=== PATIENT | female | born 1945 | race Caucasian/White ===

== ENCOUNTER 2020-04-22 14:25 | Inpatient (IN) | payer BC ==
[~2020-04-22] VITALS: Ht 172.7 cm; Wt 123.8 kg
--- NOTE | ~2020-04-22 | EMS ---
[address] [address] EMS Patient Care Report Name: ALEXIS ARANDA Room #: 170-1 ADM IN M.R.#: [id number] Admission: 04/22/20 Attend Phys: Alexx Delgado MD Discharge: Date of : 47 Report #: [id number] THIS REPORT FOR: //name// Report Transmitted: 04/22/2020 17:22 EMS Care Summary [facility] MED-ACT Incident [id number] @ 04/22/2020 13:39 Incident Location [address] [place] [address] Patient ALEXIS ARANDA Female, 74 Years 1945 Patient Address [address] [place] [address] Patient History Syncope, Patient Allergies Codeine,Latex allergy, Patient Medications Tramadol, Tizanidine, Gabapentin, Chief Complaint Hypotension Disposition Transported No Lights/[place] Dispatch Reason Unconscious/Fainting Transported To [facility] Narrative S-42 and M 1142 were dispatched to [facility] for a C-1 Unconscious. M 1142 responded emergently with lights and sirens. M 1142 found the patient sitting upright in her power chair in the restaurant. Pt was alert and oriented x4. Pt was c/o weakness, and dizziness. Pt was found to have a weak thready radial [address] [address] EMS Patient Care Report Name: ALEXIS ARANDA Room #: 170 ADM IN ..#: [id number] Admission: 04/22/20 Attend Phys: Alexx Delgado MD Discharge: Date of : 47 Report #: [id number] pulse. Pt was moved to the cot where she stated she felt better laying down. Pt stated she began to feel weak about 15-20 minutes ago. Pt stated she had been at the Doctor early in the day and they had prescribed that the pt. needed continuous home oxygen. Pt stated her O2 sat at the Doctor's office was 85%. Pt's room O2 sat was 83%. Pt's O2 saturation improved to 99% with Oxygen at 4 lpm via NC. IV initiated in the R. forearm. Pt stated that she had no pain or trouble breathing. Pt stated she felt that her speech felt normal to her. Secure transport who was eating with the pt. stated that she had taken pain killers early in the day and then had wine with her lunch. Staff stated that the patient's the pt's speech seemed normal to them. Pt complaints improved throughout transport. Pt transported to [facility]. Pt rested comfortably throughout transport. [facility] to [facility]. Pt to ER. RM#1. Pt report and care to RN. Initial Vitals @13:49P: 85,R: 18,BP: 100/71,Pain: 0/10,GCS: 15,Glucose: 200,SpO2: 83,Revised Trauma: 12,NM Suspected: false @14:01P: 82,R: 18,BP: 90/67,Pain: 0/10,GCS: 15,SpO2: 97,Revised Trauma: 12,NM Suspected: false @14:03P: 81,R: 18,Pain: 0/10,GCS: 15,SpO2: 99,NM Suspected: false @14:16P: 88,R: 18,BP: 95/56,Pain: 0/10,GCS: 15,SpO2: 99,Revised Trauma: 12, Assessments @13:50MENTAL:Person Oriented,Time Oriented,Event Oriented,Place Oriented,SKIN:HEENT:Head/Face: No Abnormalities,Neck/Airway: No Abnormalities,LUNG SOUNDS:General: No Abnormalities,ABDOMEN:General: No Abnormalities,PELVIS//GI:EXTREMITIES:Capillary Refill: Right Upper: < 2 Sec,Left Arm: No Abnormalities,Right Arm: No Abnormalities,Left Leg: No Abnormalities,Right Leg: No Abnormalities,PULSE:Radial: 1+ Thready,NEURO:No Abnormalities, Impression Generalized Weakness Procedures @14:0312-Lead ECGResponse: UnchangedSucceeded@14:34Oxygen FlowRate: 4 Device: Nasal Cannula (NC) Response: ImprovedSucceeded@14:34Saline Lock cc (18 ga) Site: Antecubital-LeftResponse: UnchangedFailed@14:35Normal Saline (.9% NaCl) 50cc (20 ga) Site: Forearm-RightResponse: ImprovedSucceeded Timeline 13:36,Call Received 13:36,Psap Call 13:39,Dispatched 13:39,En Route 13:43,On Scene [address] [address] EMS Patient Care Report Name: ALEXIS ARANDA Room #: 170-1 ADM IN [facility]#: [id number] Admission: 04/22/20 Attend Phys: Alexx Delgado MD Discharge: Date of : 47 Report #: [id number] 13:45,At Patient 13:49,BP: 100/71 M,PULSE: 85,RR: 18 R,SPO2: 83 Ox,ETCO2: ,B,PAIN: 0,GCS: 15, 14:01,BP: 90/67 M,PULSE: 82,RR: 18 R,SPO2: 97 Ox,ETCO2: ,BG: ,PAIN: 0,GCS: 15, 14:03,12-Lead ECG,Response: UnchangedSucceeded, 14:03,BP: / M,PULSE: 81,RR: 18 R,SPO2: 99 Ox,ETCO2: ,BG: ,PAIN: 0,GCS: 15, 14:07,Depart Scene 14:16,BP: 95/56 M,PULSE: 88,RR: 18 R,SPO2: 99 Ox,ETCO2: ,BG: ,PAIN: 0,GCS: 15, 14:26,At Destination 14:34,Oxygen FlowRate: 4 Device: Nasal Cannula (NC) Response: ImprovedSucceeded, 14:34,Saline Lock cc 18 ga Site: Antecubital-Left,Response: UnchangedFailed, 14:35,Normal Saline (.9% NaCl) 50cc 20 ga Site: Forearm-Right,Response: ImprovedSucceeded, 14:36,Call Closed Disclaimer v1.1 Copyright 2020 [employer] This EMS Care Summary contains data elements from the applicable legal record (which may be displayed differently). It is designed to provide pertinent information for the following purposes: continuity of care, clinical quality, and state data reporting. The complete legal record is available to ED staff and administrators of the receiving hospital in [employer]'s Patient Tracker. All data is provided "as is."
[~2020-04-22 14:25] MED LIST: ADULT LOW DOSE81 MG PO; ALLERGY10 MG; AMARYL4 MG PO; AMBIEN 5 MG TABL5 M1 PO; ARMOUR THYROID15 M1 PO; ASPIRIN325 PO; ATROVENT15 ML INH; AZITHROMYCIN 2250 MG PO; BENADRYL25 MG PO; BENZONATATE200 MG PO; CALCIUM 600 +1 EAC7 PO; CELEXA40 MG PO; CHONDROITIN SU1 EACH PO; CLARITIN10 MG PO; CLONAZEPAM 1 MG1 M1 PO; CLONAZEPAM PO; COD LIVER OIL473 ML; COLACE 100 MG100 MG PO; COLACE100 MG PO; DESYREL150 MG PO; DETROL LA4 MG PO; DIABETIC TUSSI400 MG PO; DICLOFENAC POTA50 MG; DOXYCYCLINE 10100 M1 PO; DULCOLAX10 MG RC; ENOXAPARIN30 MG/0.1 SUBQ; FLEXERIL PO; FOLIC ACID0.4 MG PO; FOSAMAX 70 MG T70 MG PO; FUROSEMIDE 40 M40 M1 PO; GLUCOPHAGE1000 MG PO; GLUCOSAMINE SU500 MG PO; HYDROCODONE-AP1 EAC6; HYDROCODONE-APA1 TA1 PO; IRON325 M1 PO; KLONOPIN1 MG PO; KLOR-CON 10 ER10 MEQ PO; LASIX 20 MG TAB20 MG PO; LASIX 40 MG TAB40 M2 PO; LEXAPRO20 MG PO; LIPITOR10 MG PO; LITHIUM CARBON150 MG PO; LITHIUM CARBON600 MG PO; MORPHINE SULFAT10 MG PO; MORPHINE SULFAT15 M3 PO; MUCINEX DM TABL1 TA1 PO; MULTIVITAMINS1 EAC7 PO; MYRBETRIQ25 MG; NABUMETONE 750750 M1 PO; NABUMETONE PO; NEURONTIN 300M300 M2 PO; NEXIUM20 M1 PO; NICOTROL INHAL1 CAR1 IH; OLANZAPINE5 MG PO; OMEPRAZOLE 20 M20 MG PO; ONDANSETRON HCL4 M2 PO; OXYCODONE-APAP1 EAC6 PO; PREDNISONE 10 M10 M1 PO; PREDNISONE 20 M20 MG PO; PRILOSEC20 MG PO; PROTONIX40 M2 PO; PROVENTIL; PROVENTIL HFA6.7 G1 INH; PULMICORT200 MCG IH; PURELAX17 GM PO; ROBAFEN AC SYR120 ML PO; SENOKOT-S1 TA1 PO; SEREVENT DISKU50 MCG IH; SEROQUEL 100 M100 MG PO; SIMVASTATIN80 MG PO; SLOW-MAG64 MG PO; TESSALON PERLE100 MG PO; TRAMADOL 50 MG50 MG; TRAZODONE 150150 MG PO; TYLENOL325 MG PO; VENTOLIN HFA 1818 GM; VENTOLIN HFA 1818 GM INH; VITAMIN A8000 UNI1; VITAMIN B-12500 MCG PO; VITAMIN C100 M1 PO; VITAMIN D1000 UNI1 PO; VITAMIN D31000 UNI2 PO; VITAMIN E400 UNIT PO; XANAX 0.5 MG0.5 MG PO; XANAX XR1 MG PO; XARELTO10 MG PO; XOPENEX0.63 MG/3 IH; ZANAFLEX4 M1 PO; ZANAFLEX4 MG PO; ZPAK PO; [UNRECOGNIZED DRUG - CODE]; [UNRECOGNIZED DRUG - OTHER]
[2020-04-22 14:40] VITALS: BP 104/47
[2020-04-22 14:51] LABS: ABSOLUTE NEUTROPHILS 5.8 thou/uL (1.4-8.2); BASOPHILS 0.5 % (0.0-2.0); EOSINOPHILS 3.5 % (0.0-3.0); HEMATOCRIT 37.4 % (37.0-47.0); HEMOGLOBIN 12.3 gm/dL (12.0-15.0); LYMPHOCYTES 12.6 % (24.0-44.0); MCH 27.7 pg (26.0-34.0); MCHC 32.8 g/dL (28.0-37.0); MCV 84.5 fL (80.0-100.0); MONOCYTES 9.3 % (1.0-8.0); PLATELET COUNT 174 thou/uL (150-400); POLYS 74.1 % (36.0-66.0); RBC 4.42 mil/uL (4.20-5.00); RDW 15.6 % (10.5-14.5); WBC 7.8 thou/uL (4.0-11.0)
[2020-04-22 15:04] LABS: PROTIME 10.1 Seconds (9.3-11.4)
[2020-04-22 15:10] LABS: ANION GAP < 0 mmol/L (7-16); BUN 25 mg/dL (7-18); CALCIUM 8.2 mg/dL (8.5-10.1); CHLORIDE 98 mmol/L (98-107); CO2 39 mmol/L (21-32); CREATININE 0.8 mg/dL (0.6-1.0); GLUCOSE 147 mg/dL (74-106); POTASSIUM 5.3 mmol/L (3.5-5.1); SODIUM 135 mmol/L (136-145)
[2020-04-22 15:20] LABS: ALBUMIN 2.8 g/dL (3.4-5.0); MAGNESIUM 1.8 mg/dL (1.8-2.4); SGOT 16 U/L (15-37); SGPT 17 U/L (30-65); TOTAL BILIRUBIN 0.2 mg/dL (0.2-1.0); TOTAL PROTEIN 6.1 g/dL (6.4-8.2); TROPONIN-I <0.06 ng/mL (<0.06)
[2020-04-22 16:14] LABS: URINE BILIRUBIN NEGATIVE (Negative); URINE BLOOD NEGATIVE (Negative); URINE CLARITY CLEAR; URINE COLOR YELLOW; URINE GLUCOSE-RANDOM* NEGATIVE (Negative); URINE KETONES NEGATIVE (Negative); URINE LEUKOCYTES-REFLEX NEGATIVE (Negative); URINE PROTEIN (DIPSTICK) NEGATIVE (Negative); URINE UROBILINOGEN 0.2 E.U./dl (0.2-1.0)
[2020-04-22 16:17] LABS: URINE NITRITE-REFLEX POSITIVE (Negative)
[2020-04-22 16:32] LABS: SQUAMOUS 0-3 Few /LPF (0-3); URINE WBC-REFLEX 0-5 Rare /HPF (0-5)
[2020-04-22 16:33] LABS: BACTERIA-REFLEX >30 Many /HPF (None Seen); CASTS None Seen /LPF (None Seen); CRYSTALS None Seen /LPF (None Seen); URINE RBC None Seen /HPF (0-2)
[2020-04-22 18:34] LABS: FOLIC ACID 19.6 ng/mL (8.6-58.9)
[2020-04-22 18:39] VITALS: BP 119/59
[2020-04-22 19:15] VITALS: BP 153/77
--- NOTE | 2020-04-22 19:36 | NUR ---
PT ARRIVED TO UNIT APPROX 1900. ALERT AND ORIENTED. VSS. DENIES CONCERNS OR ANY NEEDS AT THIS TIME. NO DISTRESS NOTED.
[2020-04-23] VITALS: BP 142/64
[2020-04-23 04:37] VITALS: BP 149/69
[2020-04-23 06:12] LABS: CREATININE 0.6 mg/dL (0.6-1.0); MAGNESIUM 1.9 mg/dL (1.8-2.4)
--- NOTE | 2020-04-23 06:45 | NUR ---
PATIENTS CARE WAS ASSUMED AFTER A TRANSFER FROM THE ED. PATIENT WAS ASSESSED MEDS WERE PASSED. PATIENT DOES HAVE MANY PERSONALITIES. 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 ADMISSION WAS DONE. PATIENT HAD A BM 04/22. PATIENT ALSO REPORTED NEURO SURGERY BY DR. RODRIGUEZ ON T2 TO T4 APPROX FOUR WEEKS AGO. PATIENT IS LOOKING FOR A ARROYO. HOURLY ROUNDS WERE DONE. THE BED IS IN A LOW AND LOCKED POSITION.
[2020-04-23 07:07] LABS: HEMATOCRIT 41.3 % (37.0-47.0); HEMOGLOBIN 13.1 gm/dL (12.0-15.0); MCH 27.5 pg (26.0-34.0); MCHC 31.8 g/dL (28.0-37.0); MCV 86.5 fL (80.0-100.0); PLATELET COUNT 134 thou/uL (150-400); RBC 4.77 mil/uL (4.20-5.00); RDW 15.6 % (10.5-14.5); WBC 5.7 thou/uL (4.0-11.0)
--- NOTE | 2020-04-23 07:27 | EKG ---
[facility] [place] [address] [place] [address] ELECTROCARDIOGRAM REPORT Name: ALEXIS ARANDA Room #: 212- ADM IN M.R.#: [id number] Admission: 04/22/20 Attend Phys: Alexx Delgado MD Discharge: Date of : 47 Report #: [id number] THIS REPORT FOR: cc: Jadiel Morrell MD, Jonathan MD Lundgren,Sean Richard MD [facility] THIS REPORT FOR: //name// [facility] ED Test Date: 2020-04-22 Test Time: 14:41:00 Pat Name: ALEXIS ARANDA Department: Room: [facility] Gender: F Restaurant Expeditor: : 1945 Requested By: Soni Baca Order Number: [id number] MD: Sean Candelaria Measurements Intervals [place] Rate: 86 P: 74 NC: 168 QRS: 55 QRSD: 93 T: 70 QT: 365 QTc: 437 Interpretive Statements Sinus rhythm Normal tracing Compared to ECG 08/21/2017 22:41:08 No significant changes Electronically Signed On 04-23-2020 7:27:04 CDT by Sean Candelaria [email or web address] <ELECTRONICALLY SIGNED> By: Sean Candelaria MD, FACC 04/23/20 0727 1441 1441 Sean Candelaria MD, [facility] /EPI
[2020-04-23 08:00] VITALS: BP 166/71
[2020-04-23 11:29] VITALS: BP 140/59
[2020-04-23 11:35] LABS: ANISOCYTOSIS 1+
--- NOTE | 2020-04-23 12:11 | NUR ---
PT REFUSED TUBIGRIP SOCKS ORDERED BY WOUND CARE. PT EDUCATED.
[2020-04-23 15:21] VITALS: BP 146/61
[2020-04-23] MEDS ORDERED: PROAIR HFA8.5 GM INH (15:40)
[2020-04-23] MEDS ORDERED: AVAPRO300 MG PO (15:40)
[2020-04-23] MEDS ORDERED: SINGULAIR 10 MG10 M1 PO (15:41)
[2020-04-23] MEDS ORDERED: FLOMAX0.4 MG PO (15:42)
[2020-04-23] MEDS ORDERED: DEPAKOTE ER500 M1 PO (15:42)
--- NOTE | 2020-04-23 16:44 | NUR ---
PT CARE ASSUMED APPROX 0700. ASSESSMENT CHARTED. PT DENIES SOA AND N/V. VSS. PT REPORTS CHRONIC BACK PAIN. PAIN MANAGEMENT POC IN PLACE. PT REFUSING CARES AND VS INTERMITTENTLY. PT HOSTILE EARLIER THIS SHIFT BECAUSE SHE WAS NOT ALLOWED TO EAT HAND FIELD FOREMAN. PT REPORTED THAT SHE "EATS HAND SANTIZER WITH EVERYTHING." ARROYO PLACED THIS SHIFT WITHOUT ISSUE. PT WANTING TO GO AMA AT THIS TIME. NURSE HAS EDUCATED PT. WILL CONTINUE TO MAKE ATTEMPTS AT DE-ESCALATION. NO DISTRESS NOTED.
--- NOTE | 2020-04-23 18:35 | HC ---
[facility] [place] [address] [place] [address] CONSULTATION Name: ALEXIS ARANDA Room #: 212-P ADM IN M.R.#: [id number] Admission: 04/22/20 Attend Phys: Alexx Delgado MD Discharge: Date of : 47 Report #: [id number] THIS REPORT FOR: cc: Jadiel Morrell MD,Jadiel Velez,Chang Felton MD ~ CC: Alexx Morrell DATE OF SERVICE: 04/23/2020 CHIEF COMPLAINT: Lower extremity edema and cellulitis. HISTORY OF PRESENT ILLNESS: This is a 74-year-old female patient with history of diabetes and hypertension, was admitted to the hospital for weakness and diaphoresis. She is noted to have some swelling of her legs with some redness and I have been asked to see her with regard to wound care evaluation. The patient at the time of evaluation is arguing with the nurse. She is refusing to take her morning medications unless she is allowed to take them with hand warehouse man as and she wishes to consume with hand warehouse man and use that in place of water for swallowing her pills, stating that she places hand warehouse man on many of her food items at home as well as takes her medications with hand warehouse man. It is difficult to redirect her to discussing her legs at this point in time. PAST MEDICAL HISTORY: Significant for hypertension, COPD, irritable bowel syndrome, gastritis, type 2 diabetes mellitus, hypothyroidism, history of migraine, chronic pain, bipolar affective disorder, depression, fibroadenoma, uterine fibroids, nocturnal hypoventilation and hypoxemia and chronic pain. MEDICATIONS: Include aspirin, hydrocodone, Xarelto, Klonopin, tizanidine, [place] Thyroid, trazodone, Lasix, Neurontin, Myrbetriq, Relafen, Prilosec, Ventolin, vitamin D3, olanzapine, morphine, Detrol, Fosamax, prednisone, Zofran. SOCIAL HISTORY: Positive for 1 glass of wine per day. She is a previous smoker. FAMILY HISTORY: Unknown. REVIEW OF SYSTEMS: Really not obtainable at this time. She is very focused and insistent on being able to consume hand warehouse man with her morning medications and is arguing with the nurse and once again cannot be redirected for additional questioning. PHYSICAL EXAMINATION: VITAL SIGNS: At this time include temperature 36.3, pulse 80, respiratory rate [facility] [address] [place] [address] CONSULTATION Name: ALEXIS ARANDA Room #: 212-P [facility] IN M.R.#: [id number] Admission: 04/22/20 Attend Phys: Alexx Delgado MD Discharge: Date of : 47 Report #: [id number], blood pressure 166/71. GENERAL: This is a somewhat chronically ill-appearing female patient who is argumentative, but appears to be in no medical distress. HEENT: Head normocephalic. Nose and throat are clear. NECK: Supple. LUNGS: Diminished. HEART: Regular rhythm. ABDOMEN: Appears nontender. EXTREMITIES: Lower extremities demonstrate 2+ edema, mild to moderate erythema, greater on the right than on the left. No open ulcerations. NEUROLOGIC: The patient is alert. Her level of orientation is difficult to assess and she is not cooperative with questioning. LABORATORY STUDIES: Include white blood cell count 5.7, hemoglobin 13.1, hematocrit 41.3. Sodium 136, potassium 5.0, chloride 100, CO2 of 35, BUN 22, creatinine 0.6, glucose 101, calcium is 8.0, magnesium 1.9, albumin is 2.8. CLINICAL IMPRESSION: 1. Venous dermatitis, bilateral lower extremities. 2. Urinary tract infection. 3. History of recent cervical laminectomy. 4. Hypertension. 5. Diabetes mellitus. 6. Bipolar affective disorder. RECOMMENDATIONS: At this point in time, we will recommend AmLactin lotion to her legs bilaterally with Tubigrip stockings for compression. Recommend elevation as she will permit. Continuation of current medications. I think she will need to be monitored with regard to her desire to consume hand warehouse man while here in the hospital. We will discuss with the hospitalist regarding those issues. I appreciate being asked to see her in consultation. <ELECTRONICALLY SIGNED> By: Chang Velez MD 04/23/20 1835 [id number] [id number] Chang Velez MD /nt
--- NOTE | 2020-04-23 19:18 | NUR ---
PT CALLED MEDICAL TRANSPORTATION WITH ATTEMPT TO LEAVE AMA. WHEN PT FOUND OUT THAT LEAVING AMA WOULD MEAN THAT SHE COULDN'T GET A SCRIPT WRITTEN FOR HER ANTIBIOTICS SHE WAS AGREEABLE TO STAY. PAIN MEDS CHANGES PER PT REQUEST BUT NOW SHE IS REFUSING MEDS. PT EDUCATED AND REPORT PASSED TO ONCOMING NURSE.
[2020-04-23 19:30] VITALS: BP 159/57
[2020-04-24 04:52] VITALS: BP 161/66
--- NOTE | 2020-04-24 04:58 | NUR ---
PT ALERT AND ORIENTED. CATHETER INTACT. C/O KNEE PAIN. PAIN MEDS PRN GIVEN. DENIES CHEST PAIN OR SOB. O2 SATS LOW THIS AM, IN 86, O2 TITRATED TO 4L , SATS 93%. PT TEARFUL AND WOULD LIKE TO BE TESTED FOR COVID. NO IMPULSIVE BEHAVIORS NOTED. PT ALSO STATES SHE WOULD LIKE TO GO HOME TO HER CATS. RN REASSURED PT SAFTY AND WILL BE DISCHARGED WHEN STABLE. NO FURTHER CONCERNS. WILL CONTINUE TO MONITOR.
[2020-04-24 08:00] VITALS: BP 154/64
[2020-04-24] MEDS ORDERED: KEFLEX500 M1 PO (11:58)
[2020-04-24 12:08] VITALS: BP 154/64
--- NOTE | 2020-04-24 12:16 | NUR ---
Case discussed with the care team and chart reveiwed. Pt being dc'd to home today with hh RN and PT orders. Pt is adament about dc home and has arranged her own w/c van ride home at 12:30 today. She is agreeable to HH referral and after much discussion it appears that she was on service with [facility] prior to admission and has some private duty care per [facility]. The pt is going home with a ivey. She reports her pcp is Dr. Jadiel Herrera. She notes two emergency contacts, Friend [facility] Campbell and [facility] Steen. She uses a scooter for mobility and has a ramp to enter her home and a stair lift to access the second floor. Her speech is manic and she changes topic constantly. She is anxious to go home today. [facility] spoke with the [facility] and they did have her on service prior to admission and can accept her for home RN and PT f/u. They are concerned about her living on her own and had a team mtg about her case yesterday. Will ask for o2 sats for possible o2 referral as well. The pt is agreeable if she qualifies but she does not want to wait or delay her dc for that. Dc community planner to fax her orders to [facility] for start of care tomorrow. The pt indicates that she has arranged for her private duty caregiver from [facility] to be there this afternoon. She denies any additional concerns. Will ask the [facility] to reassess her home safety and hotline if needed.
[2020-04-24 12:39] VITALS: BP 154/64
--- NOTE | 2020-04-24 15:00 | NUR ---
PT DISCHARGED TODAY TO HOME WITH [facility] FAXED DC ORDERS/SUMMARY SPOKE WITH ALISHA IN INTAKE SHE RECEIVED ORDERS AND WILL NOTIFY PT TIME OF VISITS.
--- NOTE | 2020-04-24 15:06 | NUR ---
PT DISCHARGING TODAY TO HOME WITH [facility] FAXED DC ORDERS/SUMMARY SPOKE WITH ALISHA IN INTAKE THEY RECEIVED ORDERS AND WILL NOTIFY PT TIME OF VISITS. FAXED REFERRAL TO [facility] FOR [facility] 02 SPOKE WITH ALBA SHE RECEIVED REFERRAL.
== END 2020-04-24 13:52 | disposition home health service (06) | DRG 689 ==
LOC: ER 14:25 → 2N 16:38 → EROBS 16:38 → 2N 19:00
PROVIDERS: Nurse Practitioner; Physician Assistant; ADMIT Hospitalist; ATTEND Hospitalist
DX: N39.0 Urinary tract infection, site not specified (principal); E43 Unspecified severe protein-calorie malnutrition; I10 Essential (primary) hypertension; Z96.611 Presence of right artificial shoulder joint; Z96.653 Presence of artificial knee joint, bilateral; E11.9 Type 2 diabetes mellitus without complications; E03.9 Hypothyroidism, unspecified; F31.9 Bipolar disorder, unspecified; G89.29 Other chronic pain; L30.8 Other specified dermatitis; E87.5 Hyperkalemia; J44.9 Chronic obstructive pulmonary disease, unspecified; M81.0 Age-related osteoporosis without current pathological fracture; G47.00 Insomnia, unspecified; K59.00 Constipation, unspecified; B96.20 Unspecified Escherichia coli [E. coli] as the cause of diseases classified elsewhere; Z90.13 Acquired absence of bilateral breasts and nipples; Z88.6 Allergy status to analgesic agent; Z88.8 Allergy status to other drugs, medicaments and biological substances; Z87.891 Personal history of nicotine dependence; Z79.82 Long term (current) use of aspirin; Z79.899 Other long term (current) drug therapy
CPT/HCPCS: 10797

== ENCOUNTER 2020-05-08 13:05 | Emergency (ER) | payer BC ==
[~2020-05-08] VITALS: Ht 172.7 cm; Wt 125.2 kg
[~2020-05-08 13:05] MED LIST changes: +AVAPRO300 MG PO; +DEPAKOTE ER500 M1 PO; +FLOMAX0.4 MG PO; +KEFLEX500 M1 PO; +PROAIR HFA8.5 GM INH; +SINGULAIR 10 MG10 M1 PO
[2020-05-08 14:04] LABS: URINE BILIRUBIN NEGATIVE (Negative); URINE BLOOD 3+ (Negative); URINE CLARITY SL CLOUDY; URINE COLOR YELLOW; URINE GLUCOSE-RANDOM* NEGATIVE (Negative); URINE KETONES TRACE (Negative); URINE PROTEIN (DIPSTICK) TRACE (Negative); URINE UROBILINOGEN 0.2 E.U./dl (0.2-1.0)
[2020-05-08 14:05] LABS: URINE LEUKOCYTES-REFLEX 2+ (Negative); URINE NITRITE-REFLEX POSITIVE (Negative)
[2020-05-08 14:15] LABS: URINE RBC 3-10 Few /HPF (0-2)
[2020-05-08 14:16] LABS: CASTS None Seen /LPF (None Seen); CRYSTALS None Seen /LPF (None Seen); SQUAMOUS 0-3 Few /LPF (0-3)
[2020-05-08] MEDS ORDERED: KEFLEX500 M1 PO (14:42)
[2020-05-08 16:08] VITALS: BP 124/59
== END 2020-05-08 16:08 | disposition home or self-care (01) ==
LOC: ER 13:05
PROVIDERS: Emergency Medicine
DX: N39.0 Urinary tract infection, site not specified (principal); R41.82 Altered mental status, unspecified; I10 Essential (primary) hypertension; J44.9 Chronic obstructive pulmonary disease, unspecified; E11.9 Type 2 diabetes mellitus without complications; E03.9 Hypothyroidism, unspecified; G43.909 Migraine, unspecified, not intractable, without status migrainosus; F31.9 Bipolar disorder, unspecified; Z90.89 Acquired absence of other organs; Z96.653 Presence of artificial knee joint, bilateral; Z96.611 Presence of right artificial shoulder joint; Z79.2 Long term (current) use of antibiotics; Z79.899 Other long term (current) drug therapy; Z79.82 Long term (current) use of aspirin; Z91.048 Other nonmedicinal substance allergy status; Z88.8 Allergy status to other drugs, medicaments and biological substances; Z88.5 Allergy status to narcotic agent; Z87.891 Personal history of nicotine dependence

== ENCOUNTER 2020-06-29 14:46 | Inpatient (IN) | payer MEDICARE ==
[~2020-06-29] VITALS: Ht 172.7 cm; Wt 128.9 kg
[2020-06-29 14:54] VITALS: BP 130/82
[2020-06-29] MEDS ORDERED: NABUMETONE 500500 M1 PO (15:09)
[2020-06-29] MEDS ORDERED: TIZANIDINE HCL2 M1 PO (15:10)
[2020-06-29] MEDS ORDERED: LASIX 40 MG TAB40 MG PO (15:10)
[2020-06-29] MEDS ORDERED: TRAMADOL HCL50 MG PO (15:10)
[2020-06-29] MEDS ORDERED: PROTONIX40 M2 PO (15:10)
[2020-06-29] MEDS ORDERED: DIOVAN320 MG PO (15:11)
[2020-06-29] MEDS ORDERED: TRAMADOL 50 MG50 MG PO (15:11)
[2020-06-29 15:35] LABS: HEMATOCRIT 38.1 % (37.0-47.0); HEMOGLOBIN 12.4 gm/dL (12.0-15.0); MCH 28.9 pg (26.0-34.0); MCHC 32.6 g/dL (28.0-37.0); MCV 88.7 fL (80.0-100.0); PLATELET COUNT 173 thou/uL (150-400); RBC 4.29 mil/uL (4.20-5.00); RDW 19.3 % (10.5-14.5); WBC 6.1 thou/uL (4.0-11.0)
[2020-06-29 15:46] LABS: ALBUMIN 3.2 g/dL (3.4-5.0); BUN 36 mg/dL (7-18); CALCIUM 8.6 mg/dL (8.5-10.1); CHLORIDE 97 mmol/L (98-107); CREATININE 0.9 mg/dL (0.6-1.0); GLUCOSE 102 mg/dL (74-106); POTASSIUM 4.9 mmol/L (3.5-5.1); SGOT 11 U/L (15-37); SGPT 16 U/L (30-65); SODIUM 140 mmol/L (136-145); TOTAL BILIRUBIN 0.3 mg/dL (0.2-1.0); TOTAL PROTEIN 7.1 g/dL (6.4-8.2)
[2020-06-29 15:53] LABS: CO2 > 45 mmol/L (21-32)
[2020-06-29 16:12] LABS: ANISOCYTOSIS 1+; LARGE PLATELETS RARE; POLYCHROMASIA OCCASIONAL
[2020-06-29 16:39] LABS: HCO3 49.6 mmol/L (22.0-26.0); PCO2 94.5 mmHg (35.0-45.0); PO2 100.3 mmHg (80.0-100.0); pH 7.338 (7.360-7.450); sO2 96.8 % (92.0-98.0)
--- NOTE | 2020-06-29 19:30 | NUR ---
PT REFUSING TO LEAVE BIPAP ON. TAKES IT OFF RIGHT WHEN THIS RN LEAVES ROOM. PROVIDER NOTIFIED THAT PATIENT WANTS TO TALK ABOUT REASONING FOR USE.
[2020-06-29 20:09] VITALS: BP 133/75
--- NOTE | 2020-06-29 20:10 | NUR ---
PROVIDER AT BEDSIDE, TALKING WITH PT REGARDING USE OF BIPAP AND STAYING TONIGHT, PT IS AGREEABLE. PROVIDER EXPLAINED TWICE WHY WE WOULD LIKE HER TO STAY, PT STATES SHE WOULD LIKE TO BE EVALUTED FOR ESOPHAGEAL CANCER- HAS BURNING IN THROAT
[2020-06-29 22:24] VITALS: BP 90/66
[2020-06-29 23:17] VITALS: BP 102/40
--- NOTE | 2020-06-30 01:01 | NUR ---
Admission history and assessments completed. Care plan initiated. High fall risks, fall precautions in place.
[2020-06-30 04:10] VITALS: BP 133/54
--- NOTE | 2020-06-30 04:10 | NUR ---
Patient making progrerss towards outcome goals. Oxygen back at baseline 2L/NC. COVID antibody negative. Nasal swab results pending. Rhythm stable. High fall risks. Fall precautions in place.
[2020-06-30 06:01] LABS: CALCIUM 8.9 mg/dL (8.5-10.1); CREATININE 0.8 mg/dL (0.6-1.0)
[2020-06-30 06:03] LABS: POTASSIUM 5.9 mmol/L (3.5-5.1)
[2020-06-30 07:25] VITALS: BP 153/51
--- NOTE | 2020-06-30 09:47 | NUR ---
Nutrition: pt admitted with Knee pain, COVID rule out. Received consult due to Hx DM/overweight. BMI 43, extreme class 3 obesity. PMH: COPD, HTN, DM, IBS, bipolar, depression, TKA/knee revisions. No recent A1C, last available 5.1 in 2011. BG 136-203. K-5.9 critically high. Meds include lasix, SSI. No available intake records yet and RD did not visit due to enhanced precautions. Would benefit from adding heart healthy, low K+ and decrease calorie level to 1500 christiano carb controlled if pt eating > 75% of meals. Place as low risk for now.
[2020-06-30 11:53] LABS: HEMATOCRIT 35.8 % (37.0-47.0); HEMOGLOBIN 11.7 gm/dL (12.0-15.0); MCH 29.1 pg (26.0-34.0); MCHC 32.7 g/dL (28.0-37.0); MCV 89.1 fL (80.0-100.0); RBC 4.02 mil/uL (4.20-5.00); RDW 19.7 % (10.5-14.5); WBC 4.9 thou/uL (4.0-11.0)
[2020-06-30] MEDS ORDERED: BISACODYL10 MG RECTAL (13:05)
[2020-06-30] MEDS ORDERED: OSTERA TABLET1 EAC1 PO (13:06)
[2020-06-30] MEDS ORDERED: MIRALAX119 GM PO (13:07)
[2020-06-30] MEDS ORDERED: DESYREL150 MG PO (13:08)
[2020-06-30] MEDS ORDERED: OCUVITE EYE +1 EACH PO (13:09)
[2020-06-30] MEDS ORDERED: WOMEN'S LAXATIVE5 M1 PO (13:10)
[2020-06-30] MEDS ORDERED: STIOLTO RESPIMAT4 GM INH (13:12)
[2020-06-30] MEDS ORDERED: MELATONIN5 MG PO (13:22)
[2020-06-30] MEDS ORDERED: CEPACOL SORE T1 EAC7 PO (13:23)
[2020-06-30] MEDS ORDERED: MAPAP500 MG PO (13:24)
[2020-06-30] MEDS ORDERED: MYLANTA MAXIMU355 ML PO (13:28)
[2020-06-30] MEDS ORDERED: NYSTATIN1 EAC3 MISCELL (13:30)
--- NOTE | 2020-06-30 14:29 | NUR ---
INITIAL ASSESSMENT: Received consult for discharge planning. FRAN reviewed chart and spoke with nursing and attending physician. Pt was admitted from [facility] due to hypercapnia. Pt placed in Enhanced Isolation to r/o COVID-19. Pt is afebrile and on 4L of O2. Pt is on IV abx and IV steroids. FRAN spoke with Aurelio in admissions at [facility], who states that pt is in their superintendent marine oil terminal care unit and is paying privately for therapy services, as pt's insurance does not have a contract with [facility] for skilled services. Pt was aware of the charges and was agreeable with paying privately for therapy. Per Aurelio, pt's friend/DPOA, Kizzy Nicolas, has been assisting pt with her financial/healthcare decisions. Pt is and does not have children or family in the [place] area. Pt was not accepted into the AL facility at [facility] due to the level of care that pt requires. Pt would consider moving into another [facility] community if she is able to go to AL with and private duty services. SW spoke with pt via phone. Introduced role of FRAN. Pt appears to be alert/orientated. Pt states she would like to change her insurance in order to get better insurance coverage. SW explained that open enrollment starts , or her insurance can be contacted to see if pt would be able to change polices or return back to traditional Medicare. Pt was unsure how she got "signed up" for her current plan. Pt would like to have therapy services to regain her strength. Pt was having trouble understanding that therapy would be covered in an in-network facility. Pt was upset that she was having to pay privately for therapy. FRAN explained that if she was in an in-network SNF, therapy would be covered as long as insurance provides authorization. Pt gave consent for SW to contact her friend/DPOA, Kizzy Cavanaugh. FRAN spoke with Kizzy Cavanaugh at length regarding pt's current condition and discharge plan. Kizzy Cavanaugh requests assistance with finding pt a new facility (with both SNF and AL). Kizzy Cavanaugh states she has contacted [facility] and [facility] (both do not have SNFs) and [facility] in [place] (which does not have AL). FRAN reviewed in-network list with Kizzy Cavanaugh, who will review additional options. Awaiting therapy evals. Pt's COVID test is pending. Pt may need psych consult to determine if pt needs DPOA to be activated. Pt has been to [facility] in 2012 for inpt psych treatment. Kizzy Cavanaugh states that pt has not been making appropriate decisions for her self (medical/financial) over the past several years and would sometimes discharge to a hotel from a hospital, if unable to discharge back home. FRAN discussed with nursing and attending physician. Merly Sims to fax over DPOA ppwk to place on pt's chart. FRAN is following to assist as needed with discharge planning .
[2020-06-30 16:29] VITALS: BP 138/46
--- NOTE | 2020-06-30 19:18 | NUR ---
PT HAS BEEN VERY NONCOMPLIANT TODAY...SHE HAS BEEN UPSET BY DIET AND KEEPS CALLING DIETARY AND EVEN SECURITY FOR COOKIES...SHE IS UNABLE TO REDIRECT REGARDING FOLLOWING DIETARY RESTRICTIONS...SHE IS CONSTANTLY ON PHONE OR COMPUTER AND DOES NOT WANT TO COMPLY WITH HAVING VITALS TAKEN OR LABS DRAWN...SHE STATES THAT WE ARE BOTHERING HER AND SHE NEEDS TO WORK AND WE ARE IN HER WAY.
[2020-06-30 19:32] VITALS: BP 119/48
--- NOTE | 2020-06-30 22:04 | NUR ---
PT AWAKE RESTING IN BED WATCHING TV. PT HAD CLEAR SPEECH, ASKING NURSE QUESTIONS REGARDING TRUMP AND ELECTION. PT COMPLIANT WITH VS, ASSESSMENT AND MEDICATIONS. PT INCONTINENT AND ASSISTED WITH TURNING FOR ADL CARE. OXYGEN INTACT. PT REQUESTED SNACK AND PROVIDED. BED ALARM ON. PT REDIRECTED REGARDING SCRATCHING AT IV.
--- NOTE | 2020-06-30 22:06 | NUR ---
PT ATTEMPTED TO GET OOB, BED ALARM SOUNDED. PT REDIRECTED BACK TO BED. PTS SPEECH WAS INITIALLY MUMBLED AND HER EYES WERE CLOSED. PT RETURNED TO BED BUT DID REMOVE FEMALE EXT CATHETER. PT REQUESTED PRN FOR PAIN R LEG AND PROVIDED. PT STATED SHE COULD NOT REMEMBER THAT SHE HAD ALREADY HAD A SNACK OF PUDDING AND ICE CREAM. BED ALARM ON.
[2020-07-01 02:06] LABS: GLYCOHEMOGLOBIN (HGB A1C) 6.2 % (4.8-5.6)
[2020-07-01 05:56] VITALS: BP 144/62
[2020-07-01 07:37] VITALS: BP 140/51
--- NOTE | 2020-07-01 10:12 | NUR ---
ASSUMED CARE APPROX 0700. PT ALERT AND ORIENTED X2. IMPULSIVE. ASSESSMENT CHARTED AND VSS. PT AFEBRILE. ON 2LNC AND IS NONCOMPLIANT WITH WEARING O2. ENCOURAGED TO KEEP O2 ON, BUT PT BECAME AGITATED. REFUSED LASIX THIS AM D/T INCREASED VOIDING. EXPLAINED RATIONALE BEHIND TAKING LASIX TO PT. PT TO BE TRANSFERRED TO 4W THIS SHIFT. PT COVID NEGATIVE AND ISOLATION D/C'D. PT SLOWLY PROGRESSING TOWARDS PLAN OF CARE GOALS. WILL CONTINUE TO MONITOR.
[2020-07-01 13:01] LABS: URINE BILIRUBIN NEGATIVE (Negative); URINE BLOOD NEGATIVE (Negative); URINE CLARITY CLEAR; URINE COLOR YELLOW; URINE GLUCOSE-RANDOM* NEGATIVE (Negative); URINE KETONES NEGATIVE (Negative); URINE LEUKOCYTES-REFLEX TRACE (Negative); URINE NITRITE-REFLEX NEGATIVE (Negative); URINE PROTEIN (DIPSTICK) NEGATIVE (Negative); URINE UROBILINOGEN 0.2 E.U./dl (0.2-1.0)
--- NOTE | 2020-07-01 13:10 | NUR ---
SW reviewed chart and spoke with nursing and attending physician. Pt had negative COVID test. Enhanced Isolation precautions have been discontinued. Pt to transfer to 4 when a room is available. Discharge is anticipated for tomorrow. SW placed call to pt's room. No answer. FRAN spoke with pt's DPOA, Kizzy Cavanaugh, via phone to provide update and discuss discharge plan. Pt's DPOA states that pt and DPOA were interested in [facility], as they have SNF/LTC and AL facility. [facility] is in network with pt's insurance. SW faxed referral/COVID test results to [facility] and left voice message for Karen in admissions. FRAN spoke with Kizzy Cavanaugh to provide update. Kizzy Cavanaugh states that if [facility] is not able to accept pt, then pt will return to [facility] and paying privately for therapy services. Kristie will continue to work with pt on changing her insurance and alternate placement if needed. Requested OT eval if needed for insurance authorization. FRAN faxed clinical info/COVID test results to [facility] for review and notified liaison of anticipated discharge. [facility] is able to accept pt back tomorrow and will have their SW assist pt with changing insurance during the open enrollment period. FRAN is following to assist as needed with discharge planning.
[2020-07-01 13:24] LABS: CALCIUM 8.8 mg/dL (8.5-10.1); CREATININE 0.8 mg/dL (0.6-1.0); POTASSIUM 4.8 mmol/L (3.5-5.1)
--- NOTE | 2020-07-01 17:12 | NUR ---
Patient was transferred to this unit from at approximately 1240. Patient was admitted to for Hypercapnia. Vital signs stable, LSCTA (diminished), ABD is soft and non-tender, BS x's 4, there is mild excoriation in her mark-area (Barrier Cream is being applied); she denies pain but does take Tramadol BID. She is incontinent of bowel and bladder. Patient is supposed to use a Bipap at [facility]; she refuses to use this. She is on O2 @ 2 Liters per nc. She is to have Accu-checks AC and HS. Patient comes from [facility]. She was wheelchair bound but is now bedridden.Patient has been very manic and needy of staffs attention. Will continue to monitor.
[2020-07-01 19:43] VITALS: BP 155/56
--- NOTE | 2020-07-02 04:54 | NUR ---
Pt. has been up until about 0300 this am. Putting on her call light frequently and asking for snacks. She is also requesting something to help her sleep. New order for trazadone (see cpoe). Pt. currently resting quietly in bed. Bed alarm is on.
--- NOTE | 2020-07-02 05:46 | NUR ---
Pt. saturated in urine and did not want staff to change her. Pt. was changed and now she is thanking them. She has been very demanding with wanting this and this. I was scanning her meds and she demanded that I quit what I was doing to hand her lap tap top to her.
[2020-07-02 07:05] VITALS: BP 162/58
--- NOTE | 2020-07-02 09:26 | NUR ---
CM NOTIFIED THAT [facility] CAN ACCEPT PT FOR SKILLED REHAB SERVICES AND ARE ABLE TO SUBMIT FOR INSURANCE AUTH IF PT AND DPOA ARE AREEABLE. CM SPOKE WIHT DPOA AND SHE IS AGREEABLE IF PT IS. CM TO SPEAK WITH PT. ALEXIS CHRISTIANSEN INDICATED THAT SHE HAD CONTACTED DR. RODRIGUEZ'S NURSE AND THEY AREN'T ACCEPTING OF PT FOR TRANSFER FOR TREATMENT DPOA INDICATED THAT HAVE AN APPOINTMENT IN JULY. CM TO SPEAK WITH PT AND PROCEED INDICATED WITH DC PLANNING.
--- NOTE | 2020-07-02 13:41 | NUR ---
FAXED REFERRAL TO [facility] SPOKE WITH THOMAS IN ADM SHE RECEIVED REFERRAL AND COULD ACCEPT BUT INSURANCE DENIED REFERRAL. DP TO FOLLOW.
[2020-07-02 15:45] VITALS: BP 168/60
--- NOTE | 2020-07-02 19:37 | NUR ---
ASSUMED PT CARE THIS AM. PT VITAL SIGNS STABLE. PT INCONTINENT AND HAS A PUREWICK IN PLACE. PATIENT IS A&OX3. PAIN WAS RESPONSIVE TO MEDICATION GIVEN. PATIENT WAS PLEASENT AND COOPERATIVE THROUGHOUT THE DAY, THEN AROUND 1800 PATIENT BECAME UNCOOPERATIVE WITH NURSING STAFF. WHEN PT WAS BEING ASSESSED, SHE REFUSED THE ASSESSMENT NURSING HOME THROUGH, STATING THAT BEING ASSESSED DID NOT MATTER AND WAS NOT NEEDING TO BE DONE. PT WAS EDUCATED ON THE IMPORTANCE OF A THOROUGH ASSESSMENT, AND PATIENT CONTINUED TO REFUSE ASSESSMENT. SUPPLY CHAIN BUYER NURSE WAS MADE AWARE OF THE PATIENT'S REFUSAL TO THE DAY SHIFT ASSESSMENT.
[2020-07-02 20:15] VITALS: BP 132/56
--- NOTE | 2020-07-03 05:29 | NUR ---
Assumed pt care at 1900. A/OX4,pleasant and not yelling or resting care from staff. VSS.C/o generalized pain allover,medicated per EMAR with relief reported. External catheter in place and functional with yellow urine draining. NSR on telemetry. Fall precautions in place,calls approp for help.
[2020-07-03 06:31] LABS: ALBUMIN 2.8 g/dL (3.4-5.0); ANION GAP < 0 mmol/L (7-16); BUN 23 mg/dL (7-18); CALCIUM 8.4 mg/dL (8.5-10.1); CHLORIDE 97 mmol/L (98-107); CO2 44 mmol/L (21-32); CREATININE 0.5 mg/dL (0.6-1.0); GLUCOSE 109 mg/dL (74-106); POTASSIUM 4.4 mmol/L (3.5-5.1); SGOT 9 U/L (15-37); SGPT 15 U/L (30-65); SODIUM 140 mmol/L (136-145); TOTAL BILIRUBIN 0.2 mg/dL (0.2-1.0); TOTAL PROTEIN 6.5 g/dL (6.4-8.2)
[2020-07-03 09:45] VITALS: BP 133/44
[2020-07-03] MEDS ORDERED: CEFDINIR300 MG PO (10:38)
[2020-07-03] MEDS ORDERED: IPRAT-ALBUT 0.5-3 ML INH (10:38)
[2020-07-03] MEDS ORDERED: NORVASC5 M1 PO (10:49)
[2020-07-03] MEDS ORDERED: PREDNISONE 20 M20 MG PO (10:49)
[2020-07-03 11:32] VITALS: BP 131/54
--- NOTE | 2020-07-03 14:17 | NUR ---
[facility] IS ABLE TO ACCEPT PT FOR SKILLED STAY FAXED DC ORDERS/SUMMARY TO FACILITY SPOKE WITH THOMAS IN ADM SHE RECEIVED ORDERS.
--- NOTE | 2020-07-03 14:39 | NUR ---
PHYSICIAN CALLED THE INSURANCE COMPANY TO ATTEMPT THE FAST APPEAL THIS AM THEY HAD DENIED SKILLED YESTERDAY. IT WAS INDICATED THAT FAST APPEAL NEEDS TO BE SUBMITTED IN LETTER FORM AND MAILED TO SOMEWHERE IN [place]. CM CALLED [facility] AND THEY INDICATED THAT THEY COULD TAKE PT PRIVATE PAY ROOM AND BOARD AND PROVIDE THERAPY UNDER PART B. CM NOTIFIED DPOA OF THIS. SHE THANKED HOSPITAL FOR ATTEMPTING APPEAL BUT INDICATED PREFERENCE FOR PT TO DC TO [facility] PP WITH PART B THERAPY SERVICES. CM ARRANGED [facility] TO PICK PT UP AT [phone] TO TAKE HER TO [facility] THEN TO [facility] WITH 1L O2. PT AND DPOA ARE AWARE AND AGREEABLE. CHART COPY MADE. REPORT TO BE CALLED TO . NO OTHER CM INTERVENTION INDICATED. CASE CLOSED.
--- NOTE | 2020-07-03 15:22 | NUR ---
Assumed patient care at 0715. Vital signs stable. Wheezes auscultated in lung roach (Dr Barba ordered breathing treatment this am). ADB soft and non-tender, BS x's 4, skin is clean, warm, dry and intact. Patient complains of "level six to eight" generalized pain. She has been given Tramadol as ordered with partial pain relief. External Female Catheter has been used with good output, due to incontinence. Blood sugars have required Sliding Scale Insulin. Patient has been very needy of staffs attention. She has been non-compliant with snacks and sugary drinks. When this nurse would not get them for her, she asked PT, OT, other staff members and even has called the kitchen to get what she wanted. Patient was given a bed bath today. She was approved to go to [facility]. Patient Discharged to [facility] via [facility] at approximately 1525.
== END 2020-07-03 16:45 | DRG 189 ==
LOC: ER 14:46 → EROBS 19:49 → 3W 19:49 → 4W 07-01 13:12
PROVIDERS: Hospitalist; Nurse Practitioner Family; Physician Assistant; Psychiatry & Neurology Psychiatry; ADMIT Hospitalist; ATTEND Hospitalist
DX: J96.22 Acute and chronic respiratory failure with hypercapnia (principal); J44.1 Chronic obstructive pulmonary disease with (acute) exacerbation; Z68.41 Body mass index [BMI] 40.0-44.9, adult; J44.0 Chronic obstructive pulmonary disease with (acute) lower respiratory infection; M25.562 Pain in left knee; M25.561 Pain in right knee; I89.0 Lymphedema, not elsewhere classified; Z20.828 Contact with and (suspected) exposure to other viral communicable diseases; I10 Essential (primary) hypertension; E03.9 Hypothyroidism, unspecified; G43.909 Migraine, unspecified, not intractable, without status migrainosus; F31.9 Bipolar disorder, unspecified; Z96.611 Presence of right artificial shoulder joint; Z96.653 Presence of artificial knee joint, bilateral; G89.4 Chronic pain syndrome; E11.42 Type 2 diabetes mellitus with diabetic polyneuropathy; K29.70 Gastritis, unspecified, without bleeding; G47.33 Obstructive sleep apnea (adult) (pediatric); E66.01 Morbid (severe) obesity due to excess calories; E87.5 Hyperkalemia; H35.30 Unspecified macular degeneration; M81.0 Age-related osteoporosis without current pathological fracture; K21.9 Gastro-esophageal reflux disease without esophagitis; K59.00 Constipation, unspecified; Z99.81 Dependence on supplemental oxygen; Z98.42 Cataract extraction status, left eye; Z98.41 Cataract extraction status, right eye; Z90.13 Acquired absence of bilateral breasts and nipples; Z88.8 Allergy status to other drugs, medicaments and biological substances; Z88.6 Allergy status to analgesic agent; Z91.040 Latex allergy status; Z87.891 Personal history of nicotine dependence; Z79.82 Long term (current) use of aspirin; Z79.899 Other long term (current) drug therapy
CPT/HCPCS: 10045; 10879

== ENCOUNTER → 2020-07-23 | Outpatient (CLI) | payer MEDICARE ==
[~2020-07-23] MED LIST changes: +BISACODYL10 MG RECTAL; +CEFDINIR300 MG PO; +CEPACOL SORE T1 EAC7 PO; +DIOVAN320 MG PO; +IPRAT-ALBUT 0.5-3 ML INH; +LASIX 40 MG TAB40 MG PO; +MAPAP500 MG PO; +MELATONIN5 MG PO; +MIRALAX119 GM PO; +MYLANTA MAXIMU355 ML PO; +NABUMETONE 500500 M1 PO; +NORVASC5 M1 PO; +NYSTATIN1 EAC3 MISCELL; +OCUVITE EYE +1 EACH PO; +OSTERA TABLET1 EAC1 PO; +STIOLTO RESPIMAT4 GM INH; +TIZANIDINE HCL2 M1 PO; +TRAMADOL 50 MG50 MG PO; +TRAMADOL HCL50 MG PO; +WOMEN'S LAXATIVE5 M1 PO
== END ==
LOC: RAD 09:09
PROVIDERS: ATTEND Family Medicine
DX: R09.89 Other specified symptoms and signs involving the circulatory and respiratory systems (principal)

== ENCOUNTER 2020-08-05 12:04 | Emergency (ER) | payer MEDICARE ==
[~2020-08-05] VITALS: Ht 172.7 cm; Wt 117.9 kg
--- NOTE | ~2020-08-05 | EMS ---
[address] [address] EMS Patient Care Report Name: ALEXIS ARANDA Room #: PRE M.Purnima#: [id number] Admission: Attend Phys: Discharge: Date of : 47 Report #: [id number] THIS REPORT FOR: //name// Report Transmitted: 08/05/2020 11:42 EMS Care Summary [facility] MED-ACT Incident [id number] @ 08/05/2020 11:18 Incident Location [address] [place] [address] Patient ALEXIS ARANDA Female, 75 Years 1945 Patient Address [address] [place] [address] Patient History Other,Chronic Obstructive Pulmonary Disease (COPD),Diabetes,Hypertension (HTN),Irritable Bowel Syndrome,Bipolar II Disorder,Pneumonia,Neuropathy,Hypothyroidism,Type 2 Diabetes,Mastectomy,Chronic Respiratory Failure, Patient Allergies Codeine,Latex allergy,Hydrocodone,Other drug allergy,Adhesive Tape,Prednisone, Patient Medications Myrbetriq, Oxygen, Hydrocodone, Tramadol, Chief Complaint "I'm weak, I just need to go to the hospital" Disposition Transported No Lights/[place] Dispatch Reason Hemorrhage/Laceration Transported To [address] [address] EMS Patient Care Report Name: ALEXIS ARANDA Room #: [facility] Guillermina#: [id number] Admission: Attend Phys: Discharge: Date of : 47 Report #: [id number] Narrative Upon arrival pt was found sitting on a wheelchair, a&ox3, airway open, self maintained, respirations regular, pulse regular, pink mucosa, dry, warm, skin. Pt is a very poor historian and pt rambled about her previous medical history as well as how she was not content with the care she was receiving at the assisted living facility. Pt eventually stated that she has been feeling weak for days and wanted to be seen at an ED. Facility staff informed crew that they had requested non emergent transport of the pt to an ED, however pt called 911 when she find out she was going to wait for her transport. Pt denied chest pain, SOA, or COVID19 symptoms. Pt is supposed to be on 3 LPM O2 NC and was noted to not be wearing her oxygen. Pt was placed on crew's O2. Upon arrival rapid assessment was performed. Vitals were obtained. Pt was assisted to stretcher, was secured, and was taken to ambulance. Pt was placed on clinical research monitor and was transported. Detailed assessment was done en route being normal or not significant except where noted. Vitals were monitored and rechecked. Pt's condition remained unchanged. Pt care was transferred to ED RN. Pt was moved to ED bed without complications. Initial Vitals @11:40P: 95,SpO2: 76, @11:26P: 104,Pain: 2/10,SpO2: 75,SC Suspected: false @11:26P: 102,R: 20,BP: 171/76,Pain: 0/10,GCS: 15,Glucose: 123,SpO2: 78,Revised Trauma: 12, @11:43P: 89,SpO2: 95, @11:37P: 95,SpO2: 93, @11:44P: 84,R: 20,BP: 126/80,GCS: 15,SpO2: 96,Revised Trauma: 12, Assessments @11:48MENTAL:No Abnormalities,SKIN:No Abnormalities,HEENT:Head/Face: No Abnormalities,Eyes: No Abnormalities,Neck/Airway: No Abnormalities,LUNG SOUNDS:General: No Abnormalities,Left Upper: No Abnormalities,Right Upper: No Abnormalities,Left Lower: No Abnormalities,Right Lower: No Abnormalities,ABDOMEN:General: No Abnormalities,Left Upper: No Abnormalities,Right Upper: No Abnormalities,Left Lower: No Abnormalities,Right Lower: No Abnormalities,PELVIS//GI:EXTREMITIES:Left Leg: Other,Right Leg: Other,PULSE:NEURO: Impression Generalized Weakness Procedures @11:35Oxygen FlowRate: 3 Device: Nasal Cannula (NC) Response: UnchangedSucceeded Timeline 11:15,Call Received 11:15,Psap Call [address] [address] EMS Patient Care Report Name: ALEXIS ARANDA CLAYTON Room #: [facility] M.R.#: [id number] Admission: Attend Phys: Discharge: Date of : 47 Report #: [id number] 11:18,Dispatched 11:18,En Route 11:22,On Scene 11:25,At Patient 11:26,BP: / M,PULSE: 104,RR: R,SPO2: 75 Ox,ETCO2: ,BG: ,PAIN: 2,GCS: , 11:26,BP: 171/76 M,PULSE: 102,RR: 20 R,SPO2: 78 Ox,ETCO2: ,B,PAIN: 0,GCS: 15, 11:35,Oxygen FlowRate: 3 Device: Nasal Cannula (NC) Response: UnchangedSucceeded, 11:37,BP: / M,PULSE: 95,RR: R,SPO2: 93 Ox,ETCO2: ,BG: ,PAIN: ,GCS: , 11:40,BP: / M,PULSE: 95,RR: R,SPO2: 76 Ox,ETCO2: ,BG: ,PAIN: ,GCS: , 11:40,Depart Scene 11:43,BP: / M,PULSE: 89,RR: R,SPO2: 95 Ox,ETCO2: ,BG: ,PAIN: ,GCS: , 11:44,BP: 126/80 M,PULSE: 84,RR: 20 R,SPO2: 96 Ox,ETCO2: ,BG: ,PAIN: ,GCS: 15, 11:58,At Destination 12:21,Call Closed Disclaimer v1.1 Copyright 2020 [employer] This EMS Care Summary contains data elements from the applicable legal record (which may be displayed differently). It is designed to provide pertinent information for the following purposes: continuity of care, clinical quality, and state data reporting. The complete legal record is available to ED staff and administrators of the receiving hospital in ES's Patient Tracker. All data is provided "as is."
[2020-08-05 12:39] LABS: ABSOLUTE NEUTROPHILS 6.9 thou/uL (1.4-8.2); BASOPHILS 0.4 % (0.0-2.0); HEMATOCRIT 41.6 % (37.0-47.0); HEMOGLOBIN 13.7 gm/dL (12.0-15.0); LYMPHOCYTES 8.7 % (24.0-44.0); MCH 29.7 pg (26.0-34.0); MCHC 32.9 g/dL (28.0-37.0); MCV 90.3 fL (80.0-100.0); MONOCYTES 11.2 % (1.0-8.0); PLATELET COUNT 163 thou/uL (150-400); POLYS 78.7 % (36.0-66.0); RBC 4.61 mil/uL (4.20-5.00); RDW 13.9 % (10.5-14.5); WBC 8.8 thou/uL (4.0-11.0)
[2020-08-05 12:45] LABS: URINE BILIRUBIN NEGATIVE (Negative); URINE BLOOD NEGATIVE (Negative); URINE CLARITY CLEAR; URINE COLOR YELLOW; URINE GLUCOSE-RANDOM* NEGATIVE (Negative); URINE KETONES NEGATIVE (Negative); URINE LEUKOCYTES-REFLEX NEGATIVE (Negative); URINE NITRITE-REFLEX NEGATIVE (Negative); URINE PROTEIN (DIPSTICK) NEGATIVE (Negative); URINE UROBILINOGEN 0.2 E.U./dl (0.2-1.0)
[2020-08-05] MEDS ORDERED: ALMACONE-2 LIQ355 ML PO (12:49)
[2020-08-05 12:50] LABS: BUN 18 mg/dL (7-18); CALCIUM 9.1 mg/dL (8.5-10.1); CHLORIDE 96 mmol/L (98-107); CREATININE 0.6 mg/dL (0.6-1.0); GLUCOSE 138 mg/dL (74-106); POTASSIUM 4.4 mmol/L (3.5-5.1); SODIUM 141 mmol/L (136-145)
[2020-08-05 12:51] LABS: CO2 > 45 mmol/L (21-32)
[2020-08-05 12:55] LABS: AMP/METHAMP Negative (Negative); BARBITURATES Negative (Negative); BENZODIAZEPINES Negative (Negative); COCAINE Negative (Negative); METHADONE Negative (Negative); OPIATES Negative (Negative); PCP Negative (Negative)
[2020-08-05 12:59] LABS: ALBUMIN 3.3 g/dL (3.4-5.0); SALICYLATE 3.8 mg/dL (2.8-20.0); SGOT 16 U/L (15-37); SGPT 14 U/L (30-65); TOTAL BILIRUBIN 0.3 mg/dL (0.2-1.0); TOTAL PROTEIN 7.4 g/dL (6.4-8.2); TROPONIN-I <0.06 ng/mL (<0.06)
[2020-08-05 14:00] LABS: BE(vivo) 14.3 mmol/L (-2 to +3); PO2 155.9 mmHg (80.0-100.0)
[2020-08-05 14:01] LABS: PCO2 66.3 mmHg (35.0-45.0)
--- NOTE | 2020-08-05 15:37 | EKG ---
[facility] [place] [address] ELECTROCARDIOGRAM REPORT Name: ALEXIS ARANDA Room #: REG [facility]#: [id number] Admission: 08/05/20 Attend Phys: Discharge: Date of : 47 Report #: [id number] THIS REPORT FOR: cc: Gonzalez Padilla Kevin E. DO Santiago, Patrick MD [facility] ~ THIS REPORT FOR: //name// [facility] ED Test Date: 2020-08-05 Test Time: 15:19:04 Pat Name: ALEXIS ARANDA Department: Room: Gender: F Order Checker: [facility] : 1945 Requested By: Paul Saavedra Order Number: [id number] MD: Neo Gaona Measurements Intervals [place] Rate: 84 P: 71 OK: 164 QRS: 56 QRSD: 95 T: 91 QT: 383 QTc: 453 Interpretive Statements Sinus rhythm Nonspecific T abnormalities, lateral leads Compared to ECG 04/22/2020 14:41:00 T-wave abnormality now present Electronically Signed On 08-05-2020 15:37:10 CDT by Neo Gaona [email or web address] <ELECTRONICALLY SIGNED> By: Neo Gaona MD, FACC 08/05/20 1537 1519 1519 Neo Gaona MD, [facility] /EPI
[2020-08-05 19:04] VITALS: BP 134/71
== END 2020-08-05 19:03 | disposition home or self-care (01) ==
LOC: ER 12:04
PROVIDERS: Emergency Medicine; Nurse Practitioner
DX: F99 Mental disorder, not otherwise specified (principal); I10 Essential (primary) hypertension; J44.9 Chronic obstructive pulmonary disease, unspecified; E03.9 Hypothyroidism, unspecified; E11.9 Type 2 diabetes mellitus without complications; G43.909 Migraine, unspecified, not intractable, without status migrainosus; G89.29 Other chronic pain; Z90.89 Acquired absence of other organs; Z79.82 Long term (current) use of aspirin; Z79.899 Other long term (current) drug therapy; Z87.891 Personal history of nicotine dependence; Z88.8 Allergy status to other drugs, medicaments and biological substances; Z91.040 Latex allergy status; Z88.5 Allergy status to narcotic agent; Z91.048 Other nonmedicinal substance allergy status; Z20.828 Contact with and (suspected) exposure to other viral communicable diseases

== ENCOUNTER 2020-09-02 | Inpatient (IN) | payer MEDICARE ==
[2020-09-02] VITALS (36 sets, daily range): BP systolic 94–154; BP diastolic 36–106
[~2020-09-02] VITALS: Ht 172.7 cm; Wt 129.3 kg
[~2020-09-02] MED LIST changes: +ALMACONE-2 LIQ355 ML PO
--- NOTE | ~2020-09-02 | EMS ---
[address] [address] EMS Patient Care Report Name: ALEXIS ARANDA Room #: REG [facility] Sarmiento#: [id number] Admission: 09/02/20 Attend Phys: Discharge: Date of : 47 Report #: [id number] THIS REPORT FOR: //name// Report Transmitted: 09/02/2020 01:04 EMS Care Summary [facility] MED-ACT Incident [id number] @ 09/01/2020 23:[address] [place] [address] Patient ALEXIS ARANDA Female, 75 Years 1945 Patient Address [address] [address] Patient History Other,Chronic Obstructive Pulmonary Disease (COPD),Diabetes,Hypertension (HTN),Irritable Bowel Syndrome,Bipolar II Disorder,Pneumonia,Neuropathy,Hypothyroidism,Type 2 Diabetes,Mastectomy,Chronic Respiratory Failure, Patient Allergies Codeine,Latex allergy,Hydrocodone,Other drug allergy,Adhesive Tape,Prednisone, Patient Medications Hydrocodone, Myrbetriq, Oxygen, Tramadol, Chief Complaint "I'm weak" Disposition Transported No Lights/[place] Dispatch Reason Abdominal Pain/Problems Transported To [address] [address] EMS Patient Care Report Name: ALEXIS ARANDA Room #: REG [facility] Sarmiento#: [id number] Admission: 09/02/20 Attend Phys: Discharge: Date of : 47 Report #: [id number] Narrative [id number] arrived on scene to be greeted at the door by a career specialist. The career specialist states that the pt had 24/7 one on one care and tonight she is c/o lower left abd pain. The pt wanted more of her pain medication but the career specialist would not give her anymore. The pt was then c/o being uncomfortable and was restless per the career specialist. The pt was found lying near the bottom of her bed with her feet hanging off the end at the knees. The pt when she talked just mumbled loudly with only a few works that were understandable. The pt states that she has pain in her LLQ abd and thinks that she has covid. The pt then demanded a drink of water while we were assessing vitals. The pt had no fever, chills, cough, or SOA. The pt was denied the water at that time. The pt was then moved to the cot using a sheet drag and secured with straps. The pt once in the MICU had her vitals monitored. The pt was transported to [facility]. The pt was taken to room 5 and moved to the bed using a sheet drag. The pt report was given to the staff internist office based only. Initial Vitals @23:46P: 91,R: 16,BP: 115/72,GCS: 14,SpO2: 98,Revised Trauma: 12, @23:33P: 92,R: 16,BP: 113/69,Pain: 2/10,GCS: 14,SpO2: 98,Revised Trauma: 12, Assessments @23:31MENTAL:Confused,SKIN:HEENT:Head/Face: No Abnormalities,Neck/Airway: No Abnormalities,LUNG SOUNDS:Right Lower: Tenderness,Left Lower: Tenderness,General: No Abnormalities,ABDOMEN:Right Lower: Tenderness,Left Lower: Tenderness,General: No Abnormalities,PELVIS//GI:Pelvis GUOther,EXTREMITIES:Left Arm: No Abnormalities,Right Arm: No Abnormalities,Left Leg: No Abnormalities,Right Leg: No Abnormalities,PULSE:NEURO:Weakness Right-Sided,Weakness Left-Sided,Slurred Speech,Other, Impression Generalized Weakness Procedures @23:51Surgical Mask on PatientResponse: Unchanged Timeline 23:18,Call Received 23:18,Psap Call 23:19,Dispatched 23:21,En Route 23:27,On Scene 23:30,At Patient 23:33,BP: 113/69 M,PULSE: 92,RR: 16 R,SPO2: 98 Ox,ETCO2: ,BG: ,PAIN: 2,GCS: 14, 23:45,Depart Scene 23:46,BP: 115/72 M,PULSE: 91,RR: 16 R,SPO2: 98 Ox,ETCO2: ,BG: ,PAIN: ,GCS: 14, 23:51,Surgical Mask on Patient,Response: Unchanged [address] [address] EMS Patient Care Report Name: ALEXIS ARANDA ANTONY Room #: REG [facility].#: [id number] Admission: 09/02/20 Attend Phys: Discharge: Date of : 47 Report #: [id number] 23:57,At Destination 00:17,Call Closed Disclaimer v1.1 Copyright 2020 [employer] This EMS Care Summary contains data elements from the applicable legal record (which may be displayed differently). It is designed to provide pertinent information for the following purposes: continuity of care, clinical quality, and state data reporting. The complete legal record is available to ED staff and administrators of the receiving hospital in [employer]'s Patient Tracker. All data is provided "as is."
[2020-09-02 01:20] LABS: BE(vivo) 14.5 mmol/L (-2 to +3); HCO3 45.1 mmol/L (22.0-26.0); sO2 96.8 % (92.0-98.0)
[2020-09-02 01:21] LABS: PCO2 89.7 mmHg (35.0-45.0); pH 7.319 (7.360-7.450)
[2020-09-02 01:58] LABS: ABSOLUTE NEUTROPHILS 4.6 thou/uL (1.4-8.2); BASOPHILS 0.5 % (0.0-2.0); EOSINOPHILS 1.8 % (0.0-3.0); HEMATOCRIT 41.6 % (37.0-47.0); HEMOGLOBIN 13.1 gm/dL (12.0-15.0); LYMPHOCYTES 13.1 % (24.0-44.0); MCH 28.2 pg (26.0-34.0); MCHC 31.5 g/dL (28.0-37.0); MCV 89.5 fL (80.0-100.0); MONOCYTES 10.6 % (1.0-8.0); PLATELET COUNT 172 thou/uL (150-400); RBC 4.65 mil/uL (4.20-5.00); RDW 13.7 % (10.5-14.5); WBC 6.3 thou/uL (4.0-11.0)
[2020-09-02 02:00] LABS: BUN 22 mg/dL (7-18); CALCIUM 8.2 mg/dL (8.5-10.1); CHLORIDE 96 mmol/L (98-107); CREATININE 0.8 mg/dL (0.6-1.0); GLUCOSE 164 mg/dL (74-106); POTASSIUM 3.8 mmol/L (3.5-5.1); SODIUM 143 mmol/L (136-145)
[2020-09-02 02:07] LABS: CO2 > 45 mmol/L (21-32)
[2020-09-02 02:10] LABS: TROPONIN-I <0.06 ng/mL (<0.06)
[2020-09-02 02:51] LABS: BE(vivo) 23.4 mmol/L (-2 to +3); HCO3 54.8 mmol/L (22.0-26.0); PO2 78.1 mmHg (80.0-100.0); sO2 94.2 % (92.0-98.0)
[2020-09-02 02:52] LABS: PCO2 96.9 mmHg (35.0-45.0)
[2020-09-02 03:12] LABS: URINE BILIRUBIN NEGATIVE (Negative); URINE BLOOD NEGATIVE (Negative); URINE CLARITY CLEAR; URINE COLOR YELLOW; URINE GLUCOSE-RANDOM* NEGATIVE (Negative); URINE KETONES TRACE (Negative); URINE LEUKOCYTES-REFLEX NEGATIVE (Negative); URINE NITRITE-REFLEX NEGATIVE (Negative); URINE PROTEIN (DIPSTICK) NEGATIVE (Negative)
[2020-09-02 03:20] LABS: AMP/METHAMP Negative (Negative); BARBITURATES Negative (Negative); BENZODIAZEPINES Negative (Negative); COCAINE Negative (Negative); METHADONE Negative (Negative); OPIATES Negative (Negative); PCP Negative (Negative)
[2020-09-02 05:00] LABS: BE(vivo) 20.8 mmol/L (-2 to +3); HCO3 47.2 mmol/L (22.0-26.0); PCO2 59.3 mmHg (35.0-45.0); PO2 155.6 mmHg (80.0-100.0); pH 7.519 (7.360-7.450); sO2 99.1 % (92.0-98.0)
--- NOTE | 2020-09-02 09:51 | EKG ---
[facility] [place] [address] ELECTROCARDIOGRAM REPORT Name: ALEXIS ARANDA Room #: 170-5 ADM IN M.R.#: [id number] Admission: 09/02/20 Attend Phys: Moni Clark Discharge: Date of : 47 Report #: [id number] THIS REPORT FOR: cc: Gonzalez Padilla,Neo Levy MD [facility] ~ THIS REPORT FOR: //name// [facility] ED Test Date: 2020-09-02 Test Time: 01:01:54 Pat Name: ALEXIS ARANDA Department: Room: 170 Gender: F Ldr Rn: chantell : 1945 Requested By: Sohail Padgett Order Number: [id number] MD: Neo Gaona Measurements Intervals [place] Rate: 73 P: 70 [place]: 153 QRS: 38 QRSD: 98 T: 94 QT: 410 QTc: 452 Interpretive Statements Sinus rhythm Inferior infarct, old Lateral leads are also involved Compared to ECG 08/05/2020 15:19:04 No significant change Electronically Signed On 09-02-2020 9:51:32 PUMP RUNNER by Neo Gaona [email or web address] <ELECTRONICALLY SIGNED> By: Neo Gaona MD, FACC 09/02/20 0951 0 0 Neo Gaona MD, [facility] /EPI
--- NOTE | 2020-09-02 16:04 | NUR ---
Patient arrived from the ED 1430. Patients POA was in the lobby and I spoke with her at 1500. The POA's name is Kizzy Campbell and her phone number is [phone]. She stated Kizzy Steen is extremely bipolar and when they extubate her she will wake up swinging and very confused. She said we need to let her know that Kizzy Cavanaugh knows where she is and that she is taking care of everything and that she isn't at the bedside because she is in the covid pod. When able have patient call and speak to the POA. LIZ very concerned. She also wanted to make sure the red shirt she was wearing as well as the bedsheet made it into a personal belongings bag and that they were returned to her.
[2020-09-02 16:27] LABS: BE(vivo) 19.3 mmol/L (-2 to +3); HCO3 46.1 mmol/L (22.0-26.0); PCO2 60.7 mmHg (35.0-45.0); PO2 72.4 mmHg (80.0-100.0); pH 7.498 (7.360-7.450); sO2 95.3 % (92.0-98.0)
--- NOTE | 2020-09-02 17:34 | NUR ---
PT ARRIVED ON THE UNIT @ 1550 WITH THE ASSIST OF AN RN AND RT. PT ARRIVED ON A PROPOFOL AND FENTANYL GTT. RN CONCERNED ABOUT COVID- 19 STATUS, PT WAS NOT RULED OUT IN THE ED. DR CERVANTES PAGED ORDERS RECIEVED. ENHANCED PRECAUTIONS PLACED. CENTRAL LINE ORDERS RECIEVED, MEDICAL DPOA CALLED @ 1700, CONSENT RECIEVED AND VERIFIED BY ANOTHER RN. WILL CONT TO MONITOR.
--- NOTE | 2020-09-02 20:12 | NUR ---
VAT CONSULTED FOR A LINE FOR THIS PT WITH BILAT MASTECT AND RULE OUT COVID ON THE VENT. A 6FRTLIJ WAS PLACED IN THE LT IJ. PLEASE SEE DI FOR DETAILS
[2020-09-03] VITALS (50 sets, daily range): BP systolic 99–181; BP diastolic 33–84
--- NOTE | 2020-09-03 14:01 | NUR ---
chart review. consult for trilogy. unable to visit with shaka cullen she remains on vent. cm spoke with shaka faganmichelet, spouse listed kitty and cm vereified with shaka roman he 2 years ago. she just left [facility] [place] did not work out and now she at [facility] with / aids through [employer]. has an adjustable bed. has home o2 concentrator and portable tanks. she has assistance with all adls. has to have assistance to set up, wheel chair level. will need few days notice so can look back inot everyday home [facility] aid or might want to look into [facility] . will cont followwing as needed for dc needs.
--- NOTE | 2020-09-03 23:11 | NUR ---
>>>0700 bEDSIDE SHIFT REPORT RECEIVED, CARE ASSUMED. >>>ASSESSMENTS DONE DOCUMENTED. PT PUT ON SEDATION VACATION. IS RESTLESS TRYING TO REACH TO TUBES AND LINES. RESTRAINTS INTACT. SEDATION MEDICATION TITRATETED PER PROTOCOL. >>>3868 PT VERY RESTLESS WITH INCREASED ANXIETY. PRN LORAZEPAM GIVEN PER ORDER. WILL CONTINUE TO MONITOR.
[2020-09-04] VITALS (39 sets, daily range): BP systolic 100–165; BP diastolic 18–92
[2020-09-04 05:10] LABS: CALCIUM 7.5 mg/dL (8.5-10.1); CREATININE 0.5 mg/dL (0.6-1.0)
[2020-09-04 05:17] LABS: HEMATOCRIT 35.9 % (37.0-47.0); HEMOGLOBIN 11.6 gm/dL (12.0-15.0); MCH 28.2 pg (26.0-34.0); MCHC 32.4 g/dL (28.0-37.0); MCV 87.1 fL (80.0-100.0); RBC 4.11 mil/uL (4.20-5.00); WBC 7.3 thou/uL (4.0-11.0)
--- NOTE | 2020-09-04 05:18 | NUR ---
Assumed pt care at 0025. Pt is sedated and on the vent. Pt gets restless and lorazepam administered as ordered. Assessment completed and documented. Continuous sedation noted. Pt is stable. Scheduled meds administered as ordered. Continue to monitor patient. Ventilator settings unchanged. No acute events overnight. No further needs at this time
[2020-09-04 05:32] LABS: POTASSIUM 2.1 mmol/L (3.5-5.1)
--- NOTE | 2020-09-04 10:22 | NUR ---
bedside nurse passed on that dpoa wants to talk with cm rn about dcp. cm called shaka roman, she requested [facility], she spoke with them about privet duty and need referral sent over, as updates to be faxed to pcp office, fax # [phone], phone # [phone]. also if shaka comes off the vent the earliest she could come home would be on 09/08/2020, have to get private duty and home care set up, she lives alone per shaka roman. will cont following as needed for dc needs.
--- NOTE | 2020-09-04 11:01 | NUR ---
Nutrition: REC Vital HP to reach 40 mL/hr if unable to extubate today.
--- NOTE | 2020-09-04 15:45 | NUR ---
FAXED REFERRAL TO [facility] SPOKE WITH LUIS IN INTAKE SHE RECEIVED REFERRAL SHE HAD A FEW QUESTIONS REGARDING PT'S NEEDS SPOKE WITH SHAY FOWLER) AND SHE WILL REACH OUT TO PT AND PT'S FRIEND REGARDING DC PLANNING.
--- NOTE | 2020-09-04 18:28 | NUR ---
ASSUMED CARE OF PT AT 1400, PT LETA GCS OF 9. CONT TO BE VENTED AND IS FENTANYL AND PROPOFOL FOR VENT MANAGEMENT. VSS, PT HAS BEEN AFIBRILE. PT RESTING WITH EYES CLOSED.
[2020-09-05] VITALS (49 sets, daily range): BP systolic 102–161; BP diastolic 31–86
--- NOTE | 2020-09-05 04:31 | NUR ---
ASSUMED CARE AT 1900. VSS. PT INTUBATED AND SEDATED WITH PROPOFOL AND FENTANY. PT ON SEDATION VACATION FOR 5 MINUTES, PT FOLLOWS PARTIAL COMMNADS. WILL SQUEEZ HAND BUT BUT NOT WIGGLE TOES, ATTEMPED TO GRAB ETT. OPENS EYES AND HAD POSITIVE COUGH AND GAG. PT WAS STABLE OVERNIGHT, NO ACUTE CHANGES, WILL CONTINUE TO MONITOR.
[2020-09-05 09:04] LABS: BE(vivo) 1.6 mmol/L (-2 to +3); HCO3 29.2 mmol/L (22.0-26.0); PCO2 60.4 mmHg (35.0-45.0); PO2 67.9 mmHg (80.0-100.0); pH 7.302 (7.360-7.450); sO2 91.3 % (92.0-98.0)
--- NOTE | 2020-09-05 16:39 | NUR ---
phone call from justine barajas who stated they have been talking with dpoa and able to accept for private duty and other service when goes home. pt remains on vent, when extubated she might requirer trilogy for home use.
--- NOTE | 2020-09-05 18:13 | NUR ---
pt not progressing towards goals. changed to precedex today. unable to tolorate being off diprivan. follows all commands. No CPAP today due to critical ABGs.
[2020-09-06] VITALS (39 sets, daily range): BP systolic 102–211; BP diastolic 35–89
[2020-09-06 04:44] LABS: BE(vivo) -3.2 mmol/L (-2 to +3); HCO3 24.7 mmol/L (22.0-26.0); PCO2 56.4 mmHg (35.0-45.0); PO2 200.5 mmHg (80.0-100.0); sO2 99.2 % (92.0-98.0)
[2020-09-06 04:45] LABS: pH 7.259 (7.360-7.450)
[2020-09-06 07:52] LABS: BE(vivo) -7.3 mmol/L (-2 to +3); HCO3 28.9 mmol/L (22.0-26.0); PO2 82.3 mmHg (80.0-100.0); sO2 86.6 % (92.0-98.0)
[2020-09-06 07:53] LABS: PCO2 131.8 mmHg (35.0-45.0); pH 6.959 (7.360-7.450)
[2020-09-06 09:36] LABS: HCO3 25.9 mmol/L (22.0-26.0); PCO2 77.2 mmHg (35.0-45.0); PO2 80.3 mmHg (80.0-100.0); pH 7.143 (7.360-7.450); sO2 91.6 % (92.0-98.0)
--- NOTE | 2020-09-06 17:37 | NUR ---
Patient remians on Bipap through out the day. Vital signs improved after lopressor given this am. No further hypertension or tachycardia. Patient sleeping but wakes occasionally and is restless, pulling at Bipap. Follows simple commands. Remians on Precedex as well. Ativan given x1 this afternoon for agitation. U/o marginal. Left NPO. Spoke with DPCLARISSA over the phone today. Updated on plan of care. See documentation on interventions for assessment detials.
[2020-09-07] VITALS (32 sets, daily range): BP systolic 102–173; BP diastolic 47–135
[2020-09-07 07:43] LABS: BE(vivo) -1.3 mmol/L (-2 to +3); HCO3 26.6 mmol/L (22.0-26.0); PCO2 59.1 mmHg (35.0-45.0); PO2 87.6 mmHg (80.0-100.0); sO2 95.3 % (92.0-98.0)
[2020-09-07 07:44] LABS: pH 7.271 (7.360-7.450)
--- NOTE | 2020-09-07 09:35 | NUR ---
TOOK OVER PATIENT CARE AT 0700. PATIENT WAS TAKEN OFF BIPAP AT [address] HENRY AT BEDSIDE, ORDERS WERE TO TAKE HER OFF PRESEDEX AND TRY ICE CHIPS AND WATER.
[2020-09-07 22:51] LABS: BE(vivo) -3.5 mmol/L (-2 to +3); HCO3 23.3 mmol/L (22.0-26.0); PCO2 49.1 mmHg (35.0-45.0); PO2 68.4 mmHg (80.0-100.0); sO2 91.6 % (92.0-98.0)
[2020-09-07 22:52] LABS: pH 7.295 (7.360-7.450)
[2020-09-08] VITALS (10 sets, daily range): BP systolic 50–187; BP diastolic 33–102
[2020-09-08 05:24] LABS: BE(vivo) -0.3 mmol/L (-2 to +3); HCO3 26.4 mmol/L (22.0-26.0); PCO2 52.1 mmHg (35.0-45.0); PO2 70.4 mmHg (80.0-100.0); sO2 92.7 % (92.0-98.0)
[2020-09-08 05:25] LABS: pH 7.323 (7.360-7.450)
[2020-09-08 06:27] LABS: ABSOLUTE NEUTROPHILS 5.5 thou/uL (1.4-8.2); BASOPHILS 0.4 % (0.0-2.0); EOSINOPHILS 2.1 % (0.0-3.0); HEMATOCRIT 36.6 % (37.0-47.0); HEMOGLOBIN 11.8 gm/dL (12.0-15.0); LYMPHOCYTES 8.6 % (24.0-44.0); MCH 27.4 pg (26.0-34.0); MCHC 32.3 g/dL (28.0-37.0); MCV 84.8 fL (80.0-100.0); MONOCYTES 11.2 % (1.0-8.0); PLATELET COUNT 183 thou/uL (150-400); POLYS 77.7 % (36.0-66.0); RBC 4.32 mil/uL (4.20-5.00); RDW 14.5 % (10.5-14.5)
[2020-09-08 06:46] LABS: ALBUMIN 2.4 g/dL (3.4-5.0); CALCIUM 8.4 mg/dL (8.5-10.1); CREATININE 0.5 mg/dL (0.6-1.0); POTASSIUM 3.1 mmol/L (3.5-5.1); TOTAL BILIRUBIN 0.4 mg/dL (0.2-1.0); TOTAL PROTEIN 6.1 g/dL (6.4-8.2)
--- NOTE | 2020-09-08 08:03 | NUR ---
PT AWAKE ALL NIGHT. UPSET WITH NPO STATUS. EXPLAINED NEED FOR VIDEO SWALLOW. STILL AGITATED WITH SITUATION. CONT TO HAVE HACKING COUGH WITH SOME STRIDOR NOTED. LS-DIMINISHED. 02SAT WNL. FEBRILE 100. BLOOD CULTURE, UA SENT
--- NOTE | 2020-09-08 10:32 | NUR ---
TOOK OVER PATIENT CARE AT 0700. DR. WOO AT BEDSIDE AT 1025 AND SAID HE WILL OREDER PT/OT, TO RESTART HOME MEDS AND TO STOP IV FLUIDS. HE IS ALSO OREDERING A DOPLER FOR THE LEFT ARM DUE TO IT BEING SIGNIFICANTLY BIGGER THAN THAT RIGHT. SPEECH AT BEDSIDE AT 1000 FOR SWALLOW EVAL, PATIENT PLACED ON HONEY THICK.
[2020-09-09 00:15] VITALS: BP 148/69
--- NOTE | 2020-09-09 04:17 | NUR ---
Assumed pt care at 1900. Pt is alert, confused and forgetful. No sign of distress noted in pt. Pt is a transfer from ICU. Stable. Denies pain, non-productive cough. Fall precaution in place. Pt is oriented to self and place. Assessment completed and documented. Scheduled meds administered to pt. Tolerated PO intake. No acute events overnight. Continue to monitor. No further needs at this time
[2020-09-09 04:50] VITALS: BP 164/68
[2020-09-09 07:45] VITALS: BP 146/78
[2020-09-09] MEDS ORDERED: PROVIGIL 100 M100 MG PO (11:07)
[2020-09-09] MEDS ORDERED: AUGMENTIN 500-1 EACH PO (11:12)
[2020-09-09 11:25] VITALS: BP 169/77
[2020-09-09 15:30] VITALS: BP 160/67
--- NOTE | 2020-09-09 17:36 | NUR ---
FAXED CLINICAL UPDATE TO [facility] RECEIVED CONFIRMATION ANTICIPATE DC TOMORROW.
--- NOTE | 2020-09-09 17:51 | NUR ---
Therapy evals in process. Patient transferred from ICU. Casemgt sp with friend friend reports patient will not want to do rehab and refuse. She reports patient lives in independent apt in senior community. She has home oxygen from [employer]. Friend is arranging 23/05 private duty with [facility] and care. left [facility] message today and did not rec return call. Friend reports patient eager to return home. She reports she believes patient needs triology/bipap. Sp with Dr Iverson who disagrees. Snow wants to sp with Dr Iverson as she believes patient needs or will return to hospital. She also wants Dr Iverson to sp with patient PCP Dr Neo Roman [phone]. Snow reports ER phys mentioned narcotics dosing may be affecting her breathing. Updated Dr Iverson on both issues. Patient will need medical transport home. Address incorrect on face sheet Address [address] [address]. Patient with an altered diet that infomation will need to be informed to care and private duty. Updated Dr Barba and alerted friend needs advance notice of discharge to arrange private duty.
[2020-09-09 19:52] VITALS: BP 157/80
[2020-09-10 03:49] VITALS: BP 171/71
[2020-09-10 06:13] LABS: CALCIUM 8.9 mg/dL (8.5-10.1); CREATININE 0.4 mg/dL (0.6-1.0); POTASSIUM 3.3 mmol/L (3.5-5.1)
--- NOTE | 2020-09-10 07:58 | NUR ---
NO EVENTS OVERNIGHT. VITALS STABLE. DENIES PAIN/
[2020-09-10 08:11] VITALS: BP 145/62
[2020-09-10 16:28] VITALS: BP 155/58
--- NOTE | 2020-09-10 16:56 | NUR ---
Spoke with Nj RAMAN for patient. Spoke with [facility] who stephen be providing the home care. Brooklynn with [facility] reports patient will be receiving the pvt dty and hospice at home. Spoke with patients RN practioner in Dr Neal office Renu. Renu unsure if Nj understands she is going home on hospice services. Discussed with Kizzy Cavanaugh she reports they are sending the RN and we will have the private duty. She reports there will be no therapy initially. She reports once patient settled in home she may consider the therapy. Faxed updates to [facility] and RN practioner. Dr akins to call LAM[facility].
--- NOTE | 2020-09-10 18:48 | NUR ---
PT ALERT AND ORIENTED TIMES THREE WITH PERIODS OF CONFUSION. VSS. IVF INFUSING PER ORDER. PT TOLERATES MEDS AND MEALS. PT REFUSED OT TODAY. WILL CONTINUE TO MONITOR.
[2020-09-10 19:48] VITALS: BP 178/85
--- NOTE | 2020-09-11 04:20 | NUR ---
CARE ASSUMED 1900. PT ALERT AND ORIENTED X 3. FORGETFUL SOMETIMES. C/O LE PAIN. VITALAS STABLE. DENIES CHEST PAIN, NAUSEA OR VOMITING. PT INCONTINENT OF BOTH BOWEL AND BLADDER. PUREWICK IN PLACE. Q2 TURNS TOLERATED. SR ON THE MONITOR. WILL CONTINUE TO MONITOR AND FOLLOW POC.
[2020-09-11 04:59] VITALS: BP 161/67
[2020-09-11 06:40] LABS: CALCIUM 8.9 mg/dL (8.5-10.1); CREATININE 0.4 mg/dL (0.6-1.0); POTASSIUM 3.7 mmol/L (3.5-5.1)
[2020-09-11 08:22] VITALS: BP 147/59
--- NOTE | 2020-09-11 12:14 | NUR ---
Sp with DPOA she is prepared for patient to return home with care. She cont to believe patient needs trilogy at home. She is concerned it has not been ordered at this time. Alerted Dr Iverson has ENT consult to determine possible need for noninvasive ventaltion. She is hopeful ordered prior to weekend. gave her phone number for Casemgr today.
[2020-09-11 12:31] VITALS: BP 147/66
--- NOTE | 2020-09-11 19:47 | NUR ---
ASSUMED CARE AT CHANGE OF SHIFT. ALERT FROM HOME WITH HH AND ROVING CAN TENDER AT HOME. 4L NASAL CANNULA, DENIES SOB, DENIES CHEST PAIN. CT OF CHEST TODAY. INCONTINENT OF BLADDER AND WITH LOOSE STOOL. NON AMBULATING. MAX ASSISTANCE. CALLS APPROPRIATELY. PERSONAL ITEMS IN REACH. DR GOOD ROUNDED SEE NOTE.
[2020-09-12] VITALS (8 sets, daily range): BP systolic 133–171; BP diastolic 49–75
--- NOTE | 2020-09-12 04:40 | NUR ---
assumed pt carea t the change of shift, pt is awake, alert and oriented, assessments as charted, frequent rounding, vss, sr on the monitor, remains on 4l o2 via nc, no events noted, will continue to monitor
[2020-09-12 06:48] LABS: ANION GAP < 0 mmol/L (7-16); BUN 4 mg/dL (7-18); CALCIUM 8.4 mg/dL (8.5-10.1); CHLORIDE 102 mmol/L (98-107); CO2 44 mmol/L (21-32); CREATININE 0.5 mg/dL (0.6-1.0); GLUCOSE 123 mg/dL (74-106); POTASSIUM 3.6 mmol/L (3.5-5.1); SODIUM 142 mmol/L (136-145)
--- NOTE | 2020-09-12 10:59 | NUR ---
Pt is dcing home with [facility] services and private duty. All parties updated. [facility] being arranged per [facility] for delievery today. Kizzy Cavanaugh is confirming a start time for her private duty caregiver this afternoon and CM to arrange for stretcher transport based on their start time. Will follow.
[2020-09-12] MEDS ORDERED: NEBULIZER MISCELL (13:12)
[2020-09-12] MEDS ORDERED: AUGMENTIN 500-1 EACH PO (15:03)
[2020-09-12] MEDS ORDERED: IPRAT-ALBUT 0.5-3 ML INH ×2 (15:03→15:18)
[2020-09-12] MEDS ORDERED: ALBUTEROL2.5 MG/31 INH (15:18)
--- NOTE | 2020-09-12 17:37 | NUR ---
ASSUMED CARE OF PT AT SHIFT CHANGE. ASSESSMENTS CHARTED. MEDS GIVEN PER DEC. PT A&OX4, C/O PAIN TREATED WITH PO MEDS WITH PARTIAL RELIEF. PT ON 4L NC. PT AGITATED EASILY. DISCHARGE ORDERS AND INSTRUCTIONS COMPLETE. PT GUARDIAN PRESENT FOR DC INSTRUCTIONS. IV AND TELE DC'D. TRANSPORTATION HOME PROVIDED BY DANIEL MONGE.
== END 2020-09-12 17:30 | disposition hospice, home (50) | DRG 208 ==
LOC: ER → 2N 03:32 → EROBS 03:32 → ICU 03:32 → 2N 09-08 19:04
PROVIDERS: Emergency Medicine; Hospitalist; Nurse Practitioner Family; Pediatrics; ADMIT Hospitalist; ATTEND Hospitalist
DX: J69.0 Pneumonitis due to inhalation of food and vomit (principal); J96.21 Acute and chronic respiratory failure with hypoxia; G93.41 Metabolic encephalopathy; J96.22 Acute and chronic respiratory failure with hypercapnia; E87.0 Hyperosmolality and hypernatremia; Z20.828 Contact with and (suspected) exposure to other viral communicable diseases; J44.9 Chronic obstructive pulmonary disease, unspecified; E03.9 Hypothyroidism, unspecified; G43.909 Migraine, unspecified, not intractable, without status migrainosus; G89.29 Other chronic pain; F32.9 Major depressive disorder, single episode, unspecified; I10 Essential (primary) hypertension; Z96.611 Presence of right artificial shoulder joint; Z96.653 Presence of artificial knee joint, bilateral; E11.42 Type 2 diabetes mellitus with diabetic polyneuropathy; E87.6 Hypokalemia; G47.33 Obstructive sleep apnea (adult) (pediatric); M19.90 Unspecified osteoarthritis, unspecified site; D69.6 Thrombocytopenia, unspecified; R13.10 Dysphagia, unspecified; Z90.13 Acquired absence of bilateral breasts and nipples; Z98.49 Cataract extraction status, unspecified eye; Z88.8 Allergy status to other drugs, medicaments and biological substances; Z88.6 Allergy status to analgesic agent; Z91.040 Latex allergy status; Z87.891 Personal history of nicotine dependence; Z79.899 Other long term (current) drug therapy; Z28.21 Immunization not carried out because of patient refusal
CPT/HCPCS: 10078; 10081

== ENCOUNTER 2020-10-27 03:45 | Inpatient (IN) | payer MEDICARE ==
[~2020-10-27] VITALS: Ht 165.1 cm; Wt 99.8 kg
--- NOTE | ~2020-10-27 | EMS ---
[address] [address] EMS Patient Care Report Name: ALEXIS STEEN Room #: REG JOSE Sarmiento#: [id number] Admission: 10/27/20 Attend Phys: Discharge: Date of : 47 Report #: [id number] THIS REPORT FOR: //name// Report Transmitted: 10/27/2020 04:08 EMS Care Summary [facility] MED-ACT Incident [id number] @ 10/27/2020 02:53 Incident Location [address] [place] [address] Patient ALEXIS STEEN Female, 75 Years 1945 Patient Address [address] [place] [address] Patient History Hypertension (HTN),Breast Cancer,Mastectomy, Patient Medications Gabapentin, Fosamax, Clonazepam, Depakote, Atorvastatin, Amlodipine, Furosemide, Ventolin, Chief Complaint Low Oxygen saturation/ short of breath Disposition Transported No Lights/Gill Dispatch Reason Breathing Problem Transported To [facility] Narrative CHIEF COMPLAINT: Short of breath, low SpO2 H.P.I.: [address] [address] EMS Patient Care Report Name: ALEXIS STEEN Room #: REG ER Adrian.#: [id number] Admission: 10/27/20 Attend Phys: Discharge: Date of : 47 Report #: [id number] Alexis Steen, a 77 y.o.f., had an SpO2 in the 70% range, according to [facility], who in turn received the information from an unknown source. Miss Steen was put on O2 at 2 LPM from a concentrator. OFD increased her oxygen to 6 LPM but her sats only giovanny to 81%. UPON ARRIVAL: Miss Steen was supine in her bed, which was saturated in urine. She was awake and in no distress. OFD was obtaining v/s, ECG. DISPOSITION: I directed the O2 to be increased to 15 lpm via nrb mask, We slid Miss Steen to the stretcher and secured her in the prescribed manner. Transport was non-emergent to [facility] as per per choice. Shortly after leaving the facility she reported she had chest pain. I tried to ask her more questions about her pain, but she refused to answer, citing she was sick. I was able to obtain a 12-Lead ECG, though palpation of the chest for placement of the electrodes produced new pain in her chest Info-only radio report made; no incidents or changes; ECG was (-) for S-T changes. We were directed to room 1. We sld her to the hospital bed. Report was received by reese Sanders RN. Initial Vitals @03:07P: 90,R: 30,BP: 128/71,Pain: 0/10,GCS: 15,SpO2: 81,Revised Trauma: 11, @03:25P: 92,R: 24,BP: 175/79,Pain: 4/10,GCS: 15,SpO2: 100,Revised Trauma: 12, @03:35P: 92,Pain: 4/10,GCS: 15,WY Suspected: false Assessments @03:09MENTAL:Person Oriented,Time Oriented,Event Oriented,Place Oriented,SKIN:HEENT:Head/Face: No Abnormalities,LUNG SOUNDS:ABDOMEN:PELVIS//GI:Incontinence,EXTREMITIES:Left Arm: No Abnormalities,Right Arm: No Abnormalities,Left Leg: No Abnormalities,Right Leg: No Abnormalities,PULSE:NEURO: Impression Shortness of breath Procedures @03:12Oxygen FlowRate: 15 Device: Non Re-breather Mask (NRB) Response: ImprovedSucceeded@PTAOxygen FlowRate: 2 Device: Nasal Cannula (NC) Response: ImprovedSucceeded@PTAOxygen FlowRate: 6 Device: Nasal Cannula (NC) Response: ImprovedSucceeded@03:10Surgical Mask on PatientResponse: Unchanged@03:3512-Lead ECG Timeline [facility] [address] [place] [address] EMS Patient Care Report Name: ALEXIS STEEN Room #: REG ER Guillermina#: [id number] Admission: 10/27/20 Attend Phys: Discharge: Date of : 47 Report #: [id number] DIP UNIT OPERATOR,Oxygen FlowRate: 2 Device: Nasal Cannula (NC) Response: ImprovedSucceeded, DIP UNIT OPERATOR,Oxygen FlowRate: 6 Device: Nasal Cannula (NC) Response: ImprovedSucccesarioed, 02:50,Call Received 02:50,Psap Call 02:53,Dispatched 02:55,En Route 03:01,On Scene 03:07,At Patient 03:07,BP: 128/71 M,PULSE: 90,RR: 30 R,SPO2: 81 Ox,ETCO2: ,BG: ,PAIN: 0,GCS: 15, 03:10,Surgical Mask on Patient,Response: Unchanged 03:12,Oxygen FlowRate: 15 Device: Non Re-breather Mask (NRB) Response: ImprovedSucceeded, 03:25,BP: 175/79 M,PULSE: 92,RR: 24 R,SPO2: 100 Ox,ETCO2: ,BG: ,PAIN: 4,GCS: 15, 03:28,Depart Scene 03:35,12-Lead ECG, 03:35,BP: / M,PULSE: 92,RR: R,SPO2: Ox,ETCO2: ,BG: ,PAIN: 4,GCS: 15, 03:40,At Destination 04:12,Call Closed Disclaimer v1.1 Copyright 2020 [employer] This EMS Care Summary contains data elements from the applicable legal record (which may be displayed differently). It is designed to provide pertinent information for the following purposes: continuity of care, clinical quality, and state data reporting. The complete legal record is available to ED staff and administrators of the receiving hospital in [email or web address] Patient Tracker. All data is provided "as is."
[~2020-10-27 03:45] MED LIST changes: +ALBUTEROL2.5 MG/31 INH; +AUGMENTIN 500-1 EACH PO; +NEBULIZER MISCELL; +PROVIGIL 100 M100 MG PO
[2020-10-27 03:47] VITALS: BP 153/66
[2020-10-27] MEDS ORDERED: TIZANIDINE HCL4 M1 PO (04:16)
[2020-10-27] MEDS ORDERED: DICLOFENAC SOD100 G1 TOP (04:17)
[2020-10-27] MEDS ORDERED: MYRBETRIQ50 MG PO (04:17)
[2020-10-27 04:18] LABS: ABSOLUTE NEUTROPHILS 4.8 thou/uL (1.4-8.2); BASOPHILS 0.6 % (0.0-2.0); EOSINOPHILS 1.6 % (0.0-3.0); HEMATOCRIT 45.3 % (37.0-47.0); HEMOGLOBIN 14.9 gm/dL (12.0-15.0); MCHC 32.8 g/dL (28.0-37.0); MCV 85.3 fL (80.0-100.0); MONOCYTES 9.6 % (1.0-8.0); PLATELET COUNT 209 thou/uL (150-400); POLYS 69.2 % (36.0-66.0); RBC 5.31 mil/uL (4.20-5.00); WBC 6.9 thou/uL (4.0-11.0)
[2020-10-27] MEDS ORDERED: OLANZAPINE10 MG PO (04:18)
[2020-10-27] MEDS ORDERED: TOLTERODINE TART4 MG PO (04:18)
[2020-10-27] MEDS ORDERED: ZIPRASIDONE HCL60 MG PO ×2 (04:18→14:05)
[2020-10-27] MEDS ORDERED: HALOPERIDOL2 MG/1 ML PO (04:19)
[2020-10-27] MEDS ORDERED: HYOSCYAMINE0.125 M1 SUBLING (04:19)
[2020-10-27] MEDS ORDERED: LORAZEPAM 0.50.5 MG PO (04:20)
[2020-10-27] MEDS ORDERED: MORPHINE S100 MG/5 M PO (04:21)
[2020-10-27] MEDS ORDERED: SENNA PLUS TAB1 EACH PO (04:22)
[2020-10-27] MEDS ORDERED: TRAZODONE HCL100 MG PO (04:23)
[2020-10-27] MEDS ORDERED: ARMODAFINIL150 MG PO (04:24)
[2020-10-27] MEDS ORDERED: LEVOTHYROXINE75 MCG PO (04:25)
[2020-10-27 04:29] LABS: CALCIUM 9.9 mg/dL (8.5-10.1); CREATININE 0.6 mg/dL (0.6-1.0); MAGNESIUM 1.8 mg/dL (1.8-2.4); POTASSIUM 4.3 mmol/L (3.5-5.1)
[2020-10-27] MEDS ORDERED: TAMSULOSIN HCL0.4 MG PO (05:39)
[2020-10-27] MEDS ORDERED: CLONAZEPAM 1 MG1 M1 PO (05:39)
[2020-10-27 06:08] LABS: URINE BILIRUBIN NEGATIVE (Negative); URINE BLOOD 1+ (Negative); URINE CLARITY CLEAR; URINE COLOR YELLOW; URINE GLUCOSE-RANDOM* NEGATIVE (Negative); URINE KETONES TRACE (Negative); URINE NITRITE-REFLEX NEGATIVE (Negative); URINE PROTEIN (DIPSTICK) TRACE (Negative); URINE SPECIFIC GRAVITY >= 1.030 (1.005-1.035); URINE UROBILINOGEN 0.2 E.U./dl (0.2-1.0)
[2020-10-27 06:09] LABS: URINE LEUKOCYTES-REFLEX 2+ (Negative)
[2020-10-27 06:32] LABS: CASTS None Seen /LPF (None Seen); SQUAMOUS 4-10 Moderate /LPF (0-3); URINE RBC 0-2 Rare /HPF (0-2)
[2020-10-27 06:33] LABS: BACTERIA-REFLEX >30 Many /HPF (None Seen); CRYSTALS None Seen /LPF (None Seen)
[2020-10-27 06:34] LABS: YEAST-REFLEX Present (None Seen)
--- NOTE | 2020-10-27 07:18 | EKG ---
[place] [address] [facility] [place] [address] ELECTROCARDIOGRAM REPORT Name: ALEXIS ARANDA Room #: 170-12 ADM IN M.R.#: [id number] Admission: 10/27/20 Attend Phys: Moni Clark Discharge: Date of : 47 Report #: [id number] [facility] ED Test Date: 2020-10-27 Test Time: 03:49:16 Pat Name: ALEXIS ARANDA Department: Room: 170 Gender: F Picker Packer: damion : 1945 Requested By: Chente Morrow Order Number: [id number] MD: Neo Gaona Measurements Intervals [place] Rate: 89 P: 71 WY: 155 QRS: 47 QRSD: 95 T: 69 QT: 383 QTc: 467 Interpretive Statements Sinus rhythm Probable left atrial enlargement Compared to ECG 09/02/2020 01:01:54 Myocardial infarct finding no longer present Electronically Signed On 10-27-2020 7:18:47 CERTIFIED NURSE AIDE by Neo Gaona [email or web address] <ELECTRONICALLY SIGNED> By: Neo Gaona MD, [facility] 10/27/20 0718 [phone] Neo Gaona MD, FACC /EPI
[2020-10-27 11:30] VITALS: BP 166/65
[2020-10-27 12:05] VITALS: BP 143/74
[2020-10-27 16:23] VITALS: BP 140/64
--- NOTE | 2020-10-27 18:24 | NUR ---
RECEIVED PT. CLOSE TO 1300; PT. AOX4; C/O BACK PAIN WHEN MOVE FROM STRECHER TO BED; TURNING OR FLAT ON BED; FORGETFUL; BG ON THE 300s; KIMBERLY BASKET SORTER NOTIFIED; ON 6 L; REQUESTED MILK; EDUCATED ABOUT MILK HAS HIGH CONTENT ON SUGAR; ST. UNDERSTANDING; NEEDS TO BE REMAINED; ADMISSION PERFORMED; HOME MED UPDATED WITH DPOA; CODE DNR; PT. UPSET DUE TO ST. "I AM NOT DNR" "CODE BLUE" "I WANT EVERYTHING"; KIMBERLY BASKET SORTER NOTIFIED; CLARIFY WITH DPOA; PER DPOA PT. IS FULL CODE, BUT INTUBATION; ORDERS ON PLACED; REQUESTED PRN PAIN MEDICATION; MEDICATION GIVEN; SR ON THE MONITOR; PERINEAL AREA RED; BARRIER CREAM APPLIED; REFUSED ALLERGY BAND; ST. "I AM ALLERGIC"; ASSESSMENT CHARGED; FOLOWING POC; WILL PASS ON REPORT;
[2020-10-27 20:45] VITALS: BP 143/56
[2020-10-28 04:45] VITALS: BP 142/69
--- NOTE | 2020-10-28 04:51 | NUR ---
ALERT.FORGETFUL.PAIN WELL CONTROLLED.NON COMPLIANT AT TIMES.O2 5L NC.MONITOR SHOWS SINUS RHYTHM.POC CONTINUED.
[2020-10-28 05:40] LABS: ABSOLUTE NEUTROPHILS 5.3 thou/uL (1.4-8.2); BASOPHILS 0.2 % (0.0-2.0); EOSINOPHILS 0.1 % (0.0-3.0); HEMATOCRIT 42.8 % (37.0-47.0); HEMOGLOBIN 13.5 gm/dL (12.0-15.0); LYMPHOCYTES 17.4 % (24.0-44.0); MCH 27.6 pg (26.0-34.0); MCHC 31.6 g/dL (28.0-37.0); MCV 87.2 fL (80.0-100.0); MONOCYTES 12.4 % (1.0-8.0); POLYS 69.9 % (36.0-66.0); RBC 4.91 mil/uL (4.20-5.00); RDW 17.9 % (10.5-14.5); WBC 7.7 thou/uL (4.0-11.0)
[2020-10-28 05:45] LABS: PLATELET COUNT 117 thou/uL (150-400)
[2020-10-28 05:50] LABS: CREATININE 0.5 mg/dL (0.6-1.0); MAGNESIUM 1.8 mg/dL (1.8-2.4); POTASSIUM 4.9 mmol/L (3.5-5.1)
[2020-10-28 07:15] VITALS: BP 148/61
[2020-10-28 11:50] VITALS: BP 103/91
--- NOTE | 2020-10-28 13:24 | NUR ---
Met with patient who discharged from [facility] with [facility] and [facility] private duty at home. Patient mostly bed bound at home. Patient reports she plans to continue with services at home. She is upset regarding lunch menu, notified RN. sp with [facility] services who reports they were not aware of hospital stay. They plan to discharge patient from service. Patient can readmit to hospice if choses however there was discussion of patient wanting home health services. Unsure if [facility] would accept patient. [facility] has denied patient for HH in past. Casemgt to sp with LAM[facility] Mauro
--- NOTE | 2020-10-28 15:22 | NUR ---
PT IS AOX3, FORGETFUL AT TIMES. TOLERATING DIET WELL, PAIN CONTROLLED WITH ORAL ANALGESICS. FALL PRECAUTION IN PLACE, PHYSICAL THERAPY WORKING WITH PT. EXTERNAL CATH IN PLACE FOR INCONTINENCE. CALL LIGHT IN REACH. WILL CONT, TO MONITOR.
[2020-10-28 15:30] VITALS: BP 129/63
--- NOTE | 2020-10-28 17:01 | NUR ---
FAXED REFERRAL FOR HH TO [facility] RECEIVED CONFIRMATION WILL F/U WITH HH IN THE AM.
[2020-10-28 20:10] VITALS: BP 119/69
[2020-10-29 04:44] VITALS: BP 138/61
--- NOTE | 2020-10-29 05:11 | NUR ---
PATIENTS CARES WERE ASSUMED AT SHIFT CHANGE. PATIENT WAS ASSESSED AND MEDS WERE PASSED. THIS PATIENT WAS AGITATED AT START OF THIS SHIFT. HER FIRST COMPLAINT WAS HER PAIN MEDS ARE SCHEDULED. NURSING DID TELL HER SHE WILL NEED TO CALL FOR PAIN MEDS. THE SHE WANTED TO CHANGE THE FEMALE CATH EVERY FOUR HOURS. AFTER SPENDING TWENTY MINUTES IN HER ROOM. TEN MINUTES LATER SHE TURNS ON HER LIGHT AGAIN WITH MORE REQUEST. THIS IS A PATIENT THAT WILL WORK HARD TO KEEP YOU IN HER ROOM.
[2020-10-29 05:12] LABS: CALCIUM 9.3 mg/dL (8.5-10.1); CREATININE 0.6 mg/dL (0.6-1.0); POTASSIUM 5.1 mmol/L (3.5-5.1)
[2020-10-29 05:20] LABS: HEMATOCRIT 41.2 % (37.0-47.0); HEMOGLOBIN 13.2 gm/dL (12.0-15.0); MCH 27.8 pg (26.0-34.0); MCV 86.9 fL (80.0-100.0); RBC 4.74 mil/uL (4.20-5.00); RDW 17.9 % (10.5-14.5); WBC 8.5 thou/uL (4.0-11.0)
[2020-10-29 09:05] VITALS: BP 132/57
--- NOTE | 2020-10-29 11:57 | NUR ---
Assess due to notification of wounds. Admit with acute/chronic respiratory failure, COVID negative. Had been on hospice services. Bedbound with hx DM, COPD, obesity, bipolar. Wound care physician documentation notes bilateral LE venous dermatitis and moisture associated skin dermatitis to sacral area. Eats 100% of meals. Usual wts from past admits 260-270 lb. Current wt shows 220 lb ?, however pt reports no wt loss. Continue carb control diet, no extra supplementation needed while appetite is good. Low nutrition risk
[2020-10-29 12:12] VITALS: BP 130/57
--- NOTE | 2020-10-29 14:53 | HC ---
[facility] [place] [place] [address] CONSULTATION Name: ALEXIS ARANDA Room #: 200-I ADM IN ..#: [id number] Admission: 10/27/20 Attend Phys: Mason Weiss MD Discharge: Date of : 47 Report #: [id number] THIS REPORT FOR: cc: Gonzalez Padilla Kevin E. DO Stephens, Thad A. MD ~ DATE OF SERVICE: 10/28/2020 WOUND CARE CONSULTATION PERSONAL PHYSICIAN: Gonzalez Padilla DO. CHIEF COMPLAINT: Lower extremity edema and gluteal rash. HISTORY OF PRESENT ILLNESS: This is a 75-year-old white female with a history of COPD, who was admitted yesterday from shelter for evaluation of hypoxemia. The patient supposedly states she woke up in the middle of the night, was short of breath and her oxygen saturation was in the 70s. The patient was placed on oxygen and brought to the Emergency Department and was admitted for [id number]-cb-[id number] respiratory failure. Upon admission, the patient stated that she has chronic lower extremity edema, for which she does not wear any compression hose, only does elevation. She refuses any type of compression. The patient also states that over the past several days, she has developed a rash in her groin and buttock area, which is slightly painful. The patient denies any other associated wounds. PAST MEDICAL HISTORY: Significant for COPD, hypertension, diabetes, irritable bowel syndrome, chronic back pain, history of depression, chronic lower extremity edema, which seems more consistent with venous insufficiency. PAST SURGICAL HISTORY: Bilateral breast mastectomy. CURRENT MEDICATIONS: Multiple, I reviewed the patient's medication list. DRUG ALLERGIES: CODEINE, ALBUTEROL, PREDNISONE, SILVER, LATEX. SOCIAL HISTORY: The patient lives in a shelter. Does not smoke or drink alcohol. FAMILY HISTORY: Not pertinent to current medical condition. REVIEW OF SYSTEMS: CONSTITUTIONAL: The patient denies fevers or chills. NEUROLOGIC: The patient complains of overall generalized weakness, but no isolated weakness in arms or legs. [facility] [address] [place] [address] CONSULTATION Name: ALEXIS ARANDA [place] Room #: 200-I [facility] IN M.R.#: [id number] Admission: 10/27/20 Attend Phys: Mason Weiss MD Discharge: Date of : 47 Report #: [id number] EYES: No complaints. ENT: No complaints. CARDIAC: The patient has chronic lower extremity edema, but no chest pain or palpitation. RESPIRATORY: The patient complains of shortness of breath with low oxygen saturations upon admission. Denies shortness of breath now. Denies associated cough or wheezes. GASTROINTESTINAL: The patient denies nausea, vomiting, abdominal pain. GENITOURINARY: The patient denies urgency or frequency, but does have a ____ catheter in place. MUSCULOSKELETAL: No complaints. SKIN: There is moisture-associated dermatitis rash in the gluteal and perineal region with associated stasis dermatitis on bilateral lower extremities, but no open ulcerations. PHYSICAL EXAMINATION: VITAL SIGNS: Stable. The patient is afebrile. GENERAL: This is an alert and oriented x 3, elderly white female, who is in no acute distress. HEENT: Normocephalic, atraumatic. Mucous membranes are somewhat dry. Pupils are round. Sclerae white. NECK: Without JVD. LUNGS: Slightly diminished breath sounds heard throughout. HEART: Regular. ABDOMEN: Obese, soft, nontender. EXTREMITIES: Evaluation of the groin and perineal region reveals moisture-associated dermatitis rash and excoriation. This extends into the posterior gluteal region with no signs of pressure ulcerations. EXTREMITIES: The patient has 1+ edema in bilateral lower extremities with stasis dermatitis changes without open ulcerations. Distal pulses are intact. NEUROLOGIC: Cranial nerves 2-12 grossly intact. Motor and sensory grossly intact. LABORATORY DATA: White count 7.7, hemoglobin 13.5. COVID-19 test was negative. BUN 21, creatinine 0.5, albumin 6 weeks ago was 2.4. IMPRESSION: 1. Venous stasis dermatitis, bilateral lower extremities without open ulcerations. 2. Moisture-associated skin dermatitis to the sacrum and bilateral groin regions. 3. Hypertension. 4. Diabetes mellitus, type 2. 5. History of bipolar disorder. 6. Generalized weakness. [address] [address] CONSULTATION Name: ALEXIS ARANDA Room #: 200-I ADM IN M.R.#: [id number] Admission: 10/27/20 Attend Phys: Mason Weiss MD Discharge: Date of : 47 Report #: [id number]. History of protein-calorie malnutrition -- moderate. PLAN: Due to the patient refuses Tubigrips or wraps for her edema, we will control with elevation upon pillows as well as AmLactin lotion to the skin daily. We will start Barrier cream to her sacrum and groin regions. She does open to air and place this twice daily on p.r.n. We will try to keep the area clean and dry. Make sure the patient is turned every 2 hours. We will utilize physical and occupational therapy as needed for strengthening, try to maximize the patient's oral protein supplementation for healing. We will continue all other current medications. <ELECTRONICALLY SIGNED> By: Aristeo Mercer MD 10/29/20 1453 1153 [id number] Aristeo Mercer MD /nt
--- NOTE | 2020-10-29 16:01 | NUR ---
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 [place] patients guardian wants to dc home with home health care. Rferral to [facility] and they declined. Referral to [facility]. All equipt will be removed from home and new order of equipt needed. Hospice provided trilogy, red lift, oxygen concentrator and portable, transfer board, nebulizer, bedside table. Sent scripts to [facility] who is in network with insurance. Need SAt/Ex for new oxygen.
--- NOTE | 2020-10-29 16:36 | NUR ---
FAXED REFERRAL TO [facility] SPOKE WITH SCOTT IN INTAKE SHE RECEIVED REFERRAL AND WILL SEND IT TO [facility] TO REVIEW.
--- NOTE | 2020-10-29 17:16 | NUR ---
ASSUMED CARE AT SHIFT CHANGE, ALERT AND ORIENRED X4,VSS, AND AFEBRILE. REFUSES CARE AT SOMETIMES, AND STATES THAT SHE IS WORRIED ABOUT HER LIVING ARRANGMENTS AFTER SHE GETS DISCHARGED FROM HERE, SPOKE WITH YOHAN TO ANSWER ANY OF HER CONCERNS, AND WILL CONTIUE WITH POC.
[2020-10-29 21:06] VITALS: BP 132/54
[2020-10-30] VITALS (7 sets, daily range): BP systolic 127–148; BP diastolic 60–94
[2020-10-30 05:05] LABS: HEMOGLOBIN 13.2 gm/dL (12.0-15.0); MCH 27.8 pg (26.0-34.0); MCHC 32.2 g/dL (28.0-37.0); MCV 86.4 fL (80.0-100.0); RBC 4.74 mil/uL (4.20-5.00); RDW 17.6 % (10.5-14.5); WBC 6.4 thou/uL (4.0-11.0)
[2020-10-30 05:08] LABS: CALCIUM 9.2 mg/dL (8.5-10.1); CREATININE 0.6 mg/dL (0.6-1.0); POTASSIUM 4.1 mmol/L (3.5-5.1)
--- NOTE | 2020-10-30 07:38 | NUR ---
PT AOX4 WITH INTERMITTENT FORGETFULNESS. PT NOTED TO BE RESTLESS. PT DIFFICULT TO REDIRECT. PT REPORTS GENERALIZED PAIN. PT RECEIVING PRN PO NORCO Q4HR. PT TOLERATING PO INTAKE OF FLUIDS WITHOUT ISSUE. PT DENIES NAUSEA. PT INCONTINENT OF BOWEL AND BLADDER, EXTERNAL CATHETER IN PLACE. PT RESTING IN BED THROUGHOUT SHIFT, FREQUENT REPOSITIONING ENCOURAGED. PT NOTED TO SHIFT INDEPENDENTLY WHILE IN BED. PT ENCOURAGED TO NOTIFY STAFF FOR ALL NEEDS, CALL LIGHT WITHIN REACH, BED ALARM ON, BED IN LOWEST POSITION, FREQUENT MONITORING WILL CONTINUE.
--- NOTE | 2020-10-30 14:27 | NUR ---
PT TO DC TOMORROW 10/31/20 TO HOME WITH [facility]. TRANSPORT ARRANGED WITH [facility] AT 1400 DUE TO WEATHER THEY MIGHT RUN EARLY OR LATE THEY WILL CALL THE UNIT WITH ETA. PLEASE FAX DC ORDERS/SUMMARY TO [facility] FAX: [phone] AND CALL TO NOTIFY OF DC [phone]. [facility] [phone].
--- NOTE | 2020-10-30 17:47 | NUR ---
RECEIVED PT'S CARE AROUND 0710; PT. ON BED; RESTING WITH EYES CLOSED; SR ON THE MONITOR; DURING AM ASSSESSMENT PT. AOX4; FORGETFUL; AM MEDICATIONS GIVEN; WHEN INFORM ABOUT AM MEDICATION PT. ST. "DON'T LET ME KNOW JUST GIVE IT TO ME"; EDUCATED ABOUT THE IMPORTANCE OF KNOWING MEDICATION; NO ANSWER BACK; REFUSED WOUND CARE MEDICATION; DURING THE MIDDLE OF IV ANTIBIOTIC INFUSION IV INFILTRATED; PT. ST. "JUST PUT A BANDAID"; EDUCATED ABOUT THE IMPORTANCE OF NEW IV; PT SHOUT "I DO NOT WANT A NEW IV LEAVE ALONE"; PHYSICIAN NOTIFIED; REQUESTED PRN PAIN MEDCIATION; MEDICATION GIVEN; DURING THE AFTERNOON PT. AGREED TO IV; NEW IV STARTED; THROUGH THE DAY REFUSED TURNING; REFUSED CHANGING; AGREED TO BED CHANGE WITH PT DURING THE AFTERNOON; PER PROFESSOR OF MUSIC TRANSPORTATION ARRANGE FOR 10/31/20 AT 1400; PER DPOA REQUESTED WHEELCHAIR TRANSPORTATION; PT. BED BOUND THROUGH THE ADMISSION; PER PROFESSOR OF MUSIC IF NEEDED TRANSPORTATION BY STRETCHER MIGHT ARRANGE WITH [facility] [employer] AT [phone] TO [facility] ACCOUNT; ASSESSMENT CHARGED; FOLLOWING POC; WILL PASS ON REPORT;
--- NOTE | 2020-10-31 00:45 | NUR ---
Pt. was a transfer from [address] [place] [address]. She is alert and oriented. She requested a snack and sugar free jello given. Pt. also c/o generalized pain and po pain med given (see emar) with some relief noted. Bed alarm is on.
[2020-10-31 05:56] LABS: HEMATOCRIT 42.5 % (37.0-47.0); HEMOGLOBIN 13.5 gm/dL (12.0-15.0); MCH 27.5 pg (26.0-34.0); MCHC 31.8 g/dL (28.0-37.0); MCV 86.6 fL (80.0-100.0); RBC 4.9 mil/uL (4.20-5.00); RDW 17.7 % (10.5-14.5); WBC 7.3 thou/uL (4.0-11.0)
[2020-10-31 06:03] LABS: CALCIUM 9.2 mg/dL (8.5-10.1); CREATININE 0.6 mg/dL (0.6-1.0); POTASSIUM 4.1 mmol/L (3.5-5.1)
[2020-10-31 07:23] VITALS: BP 120/86
--- NOTE | 2020-10-31 08:40 | NUR ---
ASSESSMENT CHARTED, MEDS CHARTED GIVEN. PATIENT INITIALLY REFUSING VITALS, REFUSING BLOOD SUGAR CHECKS. PATIENTS WHEELCHAIR AND PERSONAL ITEMS WERE DROPPED OF AT THE ER ENTERANCE. PATIENT WAS DOWN GRADED FROM CCT TO MS AND SENT UP TO 450 AROUND 0300. REPORT WAS CALLED TO NEGIN. PAIN MED GIVEN CHARTED.
[2020-10-31 15:06] VITALS: BP 147/56
--- NOTE | 2020-10-31 17:26 | NUR ---
ASSUMED CARE OF PT AT 0700. PT ALERT AND ORIENTED, IN NO ACUTE DISTRESS. VOICING MANY CONCERNS AND COMPLAINTS. REFUSING CARE AT TIMES. FRUSTRATED THAT IS SHE UNABLE TO GET A COOKIE OR OTHER SNACKS IN BETWEEN MEALS. REFUSING TO BE CLEANED THIS MORNING. ABLE TO TURN SELF IN BED. OINTMENT APPLIED TO BACKSIDE. GOOD OUTPUT. EXT FEMALE CAT H IN PLACE. UNABLE TO GO HOME TODAY BECAUSE NO HOME HEALTH NURSE.
[2020-10-31 20:00] VITALS: BP 142/61
--- NOTE | 2020-11-01 05:36 | NUR ---
Pt. has had many requests throughout the shift for snacks,adjusting room temp, pain meds,new external cath etc... She gets inpatient if her needs are not attended too promptly and will constantly put development professional light until needs are accomplished. She can also talk unkindly to the staff. She has been given po pain meds for c/o generalized pain with some relief noted (see emar). Bed alarm is on.
[2020-11-01 08:54] VITALS: BP 152/68
[2020-11-01] MEDS ORDERED: LEVOFLOXACIN500 MG PO (10:55)
[2020-11-01 11:04] VITALS: BP 136/60
--- NOTE | 2020-11-01 12:55 | NUR ---
Assumed pt care at 7am.Assessment completed.Pt in bed alert andoriented x4 but very manipulative and acting weired.Pt business applications analyst light nearly every hour asking for one thing or another.Dr Weiss here,dc order noted.Pt wanted to talk to Dr GEORGES prior to dc home about cpap setting.manager research and development notified and she said home health rn will do that since pt has rt and rn home health prior to admission to hospital.[facility] called for transport on stretcher home per pt request.manager research and development said pt will be responsible for payment.Dc summary compile and reviewed with pt.Will dc home per stretcher between 1530 and 1600 today.
[2020-11-01] MEDS ORDERED: HYDROCODON-ACE1 EAC7 PO (13:17)
--- NOTE | 2020-11-03 15:24 | NUR ---
PT DISCHARGED OVER THE HOLIDAY WEEKEND HOME WITH [facility] FAXED DC ORDERS/SUMMARY RECEIVED CONFIRMATION,
== END 2020-11-01 15:55 | disposition home health service (06) | DRG 177 ==
LOC: ER 03:45 → 2N 06:14 → EROBS 06:14 → 2N 12:05 → 4W 10-31 00:18
PROVIDERS: Emergency Medicine; Nurse Practitioner; ADMIT Hospitalist; ATTEND Hospitalist
DX: J69.0 Pneumonitis due to inhalation of food and vomit (principal); J96.21 Acute and chronic respiratory failure with hypoxia; N39.0 Urinary tract infection, site not specified; J44.1 Chronic obstructive pulmonary disease with (acute) exacerbation; I10 Essential (primary) hypertension; E03.9 Hypothyroidism, unspecified; G43.909 Migraine, unspecified, not intractable, without status migrainosus; G89.29 Other chronic pain; F32.9 Major depressive disorder, single episode, unspecified; I87.2 Venous insufficiency (chronic) (peripheral); L30.8 Other specified dermatitis; F19.10 Other psychoactive substance abuse, uncomplicated; I89.0 Lymphedema, not elsewhere classified; L89.156 Pressure-induced deep tissue damage of sacral region; E66.9 Obesity, unspecified; Z66 Do not resuscitate; G47.00 Insomnia, unspecified; M81.0 Age-related osteoporosis without current pathological fracture; M54.5 Low back pain; G47.33 Obstructive sleep apnea (adult) (pediatric); E11.42 Type 2 diabetes mellitus with diabetic polyneuropathy; Z96.653 Presence of artificial knee joint, bilateral; Z20.822 Contact with and (suspected) exposure to COVID-19; Z96.611 Presence of right artificial shoulder joint; Z90.13 Acquired absence of bilateral breasts and nipples; Z88.8 Allergy status to other drugs, medicaments and biological substances; Z88.6 Allergy status to analgesic agent; Z91.040 Latex allergy status; Z87.891 Personal history of nicotine dependence; Z79.891 Long term (current) use of opiate analgesic; Z68.36 Body mass index [BMI] 36.0-36.9, adult; Z79.899 Other long term (current) drug therapy; Z79.82 Long term (current) use of aspirin
CPT/HCPCS: 10045; 10081

== ENCOUNTER → 2021-12-04 | Outpatient (CLI) | payer MEDICARE ==
[~2021-12-04] MED LIST changes: +ARMODAFINIL150 MG PO; +DICLOFENAC SOD100 G1 TOP; +HALOPERIDOL2 MG/1 ML PO; +HYDROCODON-ACE1 EAC7 PO; +HYOSCYAMINE0.125 M1 SUBLING; +LEVOFLOXACIN500 MG PO; +LEVOTHYROXINE75 MCG PO; +LORAZEPAM 0.50.5 MG PO; +MORPHINE S100 MG/5 M PO; +MYRBETRIQ50 MG PO; +OLANZAPINE10 MG PO; +SENNA PLUS TAB1 EACH PO; +TAMSULOSIN HCL0.4 MG PO; +TIZANIDINE HCL4 M1 PO; +TOLTERODINE TART4 MG PO; +TRAZODONE HCL100 MG PO; +ZIPRASIDONE HCL60 MG PO
== END ==
LOC: RAD 09:20
PROVIDERS: ATTEND Pediatrics
DX: J69.0 Pneumonitis due to inhalation of food and vomit (principal)